=== PATIENT | female | born 1935 ===

== ENCOUNTER 2017-04-11 06:59 | Inpatient (IN) | payer MEDICARE, OTHER ==
[2017-04-11] MEDS ORDERED: Sodium Chloride 0.9% 500 ML IV ONE (07:33)
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
[2017-04-11 07:45] LABS: BASO # 0.1 K/uL (0.0-0.2); BASO % 0.9 % (0.0-2.0); EOS % 0.2 % (0.0-4.0); HEMOGLOBIN 11.8 g/dL (11.0-16.0); LYMPH # 1.5 K/uL (1.0-4.3); MEAN CELL VOLUME 98.3 fL (81.0-99.0); MEAN CORPUSCULAR HEMOGLOBIN 33.3 pg (27.0-31.0); MEAN CORPUSCULAR HGB CONC 33.9 g/dL (33.0-37.0); MEAN PLATELET VOLUME 8.6 fL (7.2-11.7); MONO # 0.7 K/uL (0.0-0.8); MONO % 7.4 % (0.0-10.0); NEUT # 6.9 K/uL (1.8-7.0); NEUT % 75.5 % (50.0-75.0); NRBC % 0.1 % (0.0-2.0); RBC 3.55 Mil/uL (3.80-5.20); WHITE BLOOD COUNT 9.1 K/uL (4.8-10.8)
[2017-04-11 07:47] LABS: VENOUS BLOOD GAS BASE EXCESS 8.8 mmol/L (0.0-2.0); VENOUS BLOOD GAS PCO2 48 mmHg (40-60); VENOUS BLOOD GAS PO2 32 mm/Hg (30-55); VENOUS BLOOD PH 7.46 (7.32-7.43)
[2017-04-11] MEDS ORDERED: Sodium Chloride 0.9% 1,000 ML ONE (07:49)
--- NOTE | 2017-04-11 07:49 | RAD ---
PROCEDURE: CHEST RADIOGRAPH, 1 VIEW HISTORY: SOB COMPARISON: 07/12/2016 FINDINGS: LUNGS: The neck -Face tissues obscure the medial lung apices. The remaining lungs are clear. PLEURA: No pneumothorax or pleural fluid seen. CARDIOVASCULAR: Atherosclerotic vascular calcifications thoracic aorta present OSSEOUS STRUCTURES: Generalized osteopenia and senescent changes VISUALIZED UPPER ABDOMEN: Normal. OTHER FINDINGS: None. IMPRESSION: No active disease.
[2017-04-11 07:51] LABS: INR 1.3; PROTHROMBIN TIME 14.1 SECONDS (9.7-12.2)
[2017-04-11] MEDS ORDERED: Vancomycin 1 GM 1 GM/250 ML BAG IV STA (07:55)
[2017-04-11] MEDS ORDERED: Cefepime 1 GM in Sodium Chloride 0.9% 50 ML IVPB STA (07:56)
[2017-04-11] MEDS ORDERED: Moxifloxacin IV 400mg/250ml NS 400 MG/250 ML BAG IV STA (07:56)
[2017-04-11 07:57] LABS: ALB/GLOB RATIO 0.6 (1.0-2.1); AST/SGOT 26 U/L (14-36); GFR AFRICAN-AMERICAN > 60; GFR NON-AFRICAN AMERICAN > 60
[2017-04-11] MEDS ORDERED: Bacitracin 500 Units/gm Oint Foilpak UD ONE (07:57)
[2017-04-11 07:58] LABS: ALT/SGPT 8 U/L (9-52); BLOOD UREA NITROGEN 30 mg/dL (7-17); CALCIUM 8.8 mg/dl (8.6-10.4)
[2017-04-11 08:06] LABS: B-TYPE NATRIURETIC PEPTIDE 596 pg/mL (0-900); CK-MB 0.56 ng/mL (0.0-3.38)
[2017-04-11 08:10] LABS: SQUAMOUS EPITHIAL 4 /hpf (0-5); URINE AMORPHOUS SEDIMENT RARE /ul (<OCC); URINE BACTERIA FEW (<OCC); URINE BILIRUBIN NEGATIVE (NEGATIVE); URINE BLOOD NEGATIVE (NEGATIVE); URINE CLARITY Hazy (Clear); URINE COLOR Yellow (YELLOW); URINE GLUCOSE (UA) NORMAL (Normal); URINE LEUKOCYTE ESTERASE NEG Leu/uL (Negative); URINE NITRATE NEGATIVE (NEGATIVE); URINE PROTEIN 1+ mg/dL (NEGATIVE)
[2017-04-11] MEDS ORDERED: Sodium Chloride 0.9% 1,000 ML IV ONE ×2 (08:22→10:53)
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
[2017-04-11] MEDS ORDERED: Moxifloxacin IV 400mg/250ml NS 400 MG/250 ML BAG IVPB ONE (10:19)
[2017-04-11] MEDS ORDERED: Acetaminophen 650mg/20.3ml solution UD PO PRN (11:00)
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
[2017-04-11] MEDS ORDERED: Iodixanol 320 MG/ML 100 ML BOTTLE IV ONE (15:35)
--- NOTE | 2017-04-11 17:10 | CT ---
PROCEDURE: CT Abdomen and Pelvis with contrast HISTORY: R/O abscess formation near PEG, peritonitis COMPARISON: None available. TECHNIQUE: Contrast dose: 100 mL Visipaque Radiation dose: Total exam DLP = 341.51 MGy-cm. This CT exam was performed using one or more of the following dose reduction techniques: Automated exposure control, adjustment of the mA and/or kV according to patient size, and/or use of iterative reconstruction technique. FINDINGS: LOWER THORAX: Bilateral lower lobe consolidations may reflect pneumonia and/or atelectasis. No visible pleural effusion or pneumothorax. LIVER: Unremarkable. GALLBLADDER AND BILE DUCTS: Unremarkable. PANCREAS: Unremarkable. SPLEEN: Unremarkable. ADRENALS: Unremarkable. KIDNEYS AND URETERS: No hydronephrosis or obstructing calculus identified. The kidneys enhance symmetrically. VASCULATURE: Dense atherosclerotic calcifications of the aorta and branches. No aortic aneurysm. BOWEL: Stomach is nondistended. Peg tube in place. Lack of oral contrast limits evaluation for bowel pathology. No dilated bowel loops to suggest obstruction. Moderate to severe constipation. APPENDIX: Not visualized. No secondary signs of acute appendicitis. PERITONEUM: No significant free fluid. No definite free air. LYMPH NODES: No bulky adenopathy identified. BLADDER: Decompressed urinary bladder with Ta catheter present. Air within the urinary bladder may be secondary to instrumentation. REPRODUCTIVE: The uterus is present and contains multiple coarse calcifications likely related to degenerating fibroids. BONES: Scoliosis convex to the left. Multilevel degenerative changes. OTHER FINDINGS: None. IMPRESSION: Peg tube. No definite abscess identified. Bilateral lower lobe consolidations may reflect pneumonia and/or atelectasis. Moderate to severe constipation. Air within a decompressed urinary bladder with Ta catheter present; there is likely secondary to recent instrumentation however correlate clinically to exclude cystitis. Evidence of degenerating uterine fibroids. Additional findings as above.
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
[2017-04-11] MEDS: Dextrose 5%/0.45% NS 1,000 ML IV SCH (19:24)
[2017-04-11] MEDS: Albuterol-Ipratrop 3 mg / 0.5 (3 ml) UD INH SCH (20:31)
[2017-04-11] MEDS: Cefepime IV 1 gm in Dextrose 1 GM/50 ML BAG IVPB SCH (20:37)
--- NOTE | 2017-04-11 22:37 | CARD ---
APPROVED REPORT EKG Measurement Heart [id number] <Conclusion> Sinus tachycardia with premature supraventricular complexes Nonspecific ST abnormality Abnormal ECG
[2017-04-12] MEDS: Albuterol-Ipratrop 3 mg / 0.5 (3 ml) UD INH SCH ×6 (01:06→20:17)
[2017-04-12 07:39] LABS: BASO % 0.3 % (0.0-2.0); EOS # 0.1 K/uL (0.0-0.7); EOS % 1.3 % (0.0-4.0); HEMOGLOBIN 10.3 g/dL (11.0-16.0); LYMPH % 9.2 % (20.0-40.0); MEAN CORPUSCULAR HEMOGLOBIN 32.6 pg (27.0-31.0); MEAN PLATELET VOLUME 9.3 fL (7.2-11.7); MONO # 0.5 K/uL (0.0-0.8); MONO % 4.6 % (0.0-10.0); NEUT % 84.6 % (50.0-75.0); NRBC % 0.1 % (0.0-2.0); PLATELET COUNT 169 K/uL (130-400); RBC 3.16 Mil/uL (3.80-5.20); RED CELL DISTRIBUTION WIDTH 13.1 % (11.5-14.5); WHITE BLOOD COUNT 10.6 K/uL (4.8-10.8)
[2017-04-12 08:17] LABS: ALBUMIN 2.3 g/dL (3.5-5.0)
[2017-04-12 08:20] LABS: ALB/GLOB RATIO 0.6 (1.0-2.1); AST/SGOT 22 U/L (14-36); BLOOD UREA NITROGEN 27 mg/dL (7-17); GFR AFRICAN-AMERICAN > 60; GFR NON-AFRICAN AMERICAN > 60
[2017-04-12 08:21] LABS: ALT/SGPT 9 U/L (9-52); CALCIUM 8.2 mg/dl (8.6-10.4); MAGNESIUM 2.3 mg/dL (1.6-2.3)
[2017-04-12] MEDS: Cefepime IV 1 gm in Dextrose 1 GM/50 ML BAG IVPB SCH ×2 (08:29→20:01)
[2017-04-12] MEDS: Dextrose 5%/0.45% NS 1,000 ML IV SCH (08:30)
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
[2017-04-12 10:45] LABS: BANDS 23 % (0-2); BASOPHIL 1 % (0-2); LYMPHOCYTE 9 % (20-40); MONOCYTE 2 % (0-10); NEUTROPHIL 65 % (50-75); PLATELET ESTIMATE NORMAL (NORMAL); TOTAL CELLS COUNTED 100
[2017-04-12] MEDS: Bacitracin 500 Units/gm Oint Foilpak UD TOP SCH (10:56)
[2017-04-12] MEDS: Valproic Acid 250 mg/5 ml UD Cup PEG SCH ×3 (11:00→17:12)
[2017-04-12] MEDS ORDERED: Cefepime IV 1 gm in Dextrose 1 GM/50 ML BAG IVPB SCH (11:00)
--- NOTE | 2017-04-12 11:09 | CP.PCM.PN ---
Subjective - Date & Time of Evaluation Date of Evaluation: 04/12/17 Time of Evaluation: 09:00 - Subjective Subjective: PGY1 on medicine Dr. Miller's service: Patient seen and examined at bedside this morning. Patient does not respond to verbal commands. Patient does not respond to sternal rubbing. Per patient's aid the patient is normally oriented to person only. Objective - Vital Signs/Intake and Output Vital Signs (last 24 hours): Temp Pulse Resp BP Pulse Ox 99.7 F H 91 H 20 104/63 100 04/12/17 07:00 04/12/17 07:00 04/12/17 07:00 04/12/17 07:00 04/12/17 07:00 Intake and Output: 04/12/17 04/12/17 06:59 18:59 Intake Total 900 Output Total 400 Balance 500 - Medications Medications: Current Medications Acetaminophen (Tylenol 650 Mg Supp) 650 mg CO Q6 PRN PRN Reason: Fever >100.4 F Albuterol/Ipratropium (Duoneb 3 Mg/0.5 Mg (3 Ml) Ud) 3 ml INH RQ4 [facility] Last Admin: 04/12/17 08:12 Dose: Not Given Bacitracin (Bacitracin) 1 ea TOP DAILY [facility] Last Admin: 04/12/17 10:56 Dose: 1 ea Famotidine (Pepcid) 20 mg IVP Q12 [facility] Last Admin: 04/12/17 10:56 Dose: 20 mg Heparin Sodium (Porcine) (Heparin) 5,000 units SC Q8 [facility] Last Admin: 04/12/17 06:32 Dose: 5,000 units Azithromycin 500 mg/ Sodium (Chloride) 250 mls @ 250 mls/hr IVPB DAILY [facility] Dextrose/Sodium Chloride (Dextrose 5%/0.45% Ns 1000 Ml) 1,000 mls @ 75 mls/hr IV .[id number] [facility] Last Admin: 04/12/17 08:30 Dose: 75 mls/hr Cefepime HCl (Maxipime Iv 1 Gm Premix) 1 gm in 50 mls @ 100 mls/hr IVPB Q12H [facility] Last Admin: 04/12/17 08:29 Dose: 100 mls/hr Potassium Chloride (Potassium Chloride 20 Meq/100 Ml) 20 meq in 100 mls @ 50 mls/hr IVPB ONCE ONE Stop: 04/12/17 11:59 Last Admin: 04/12/17 10:57 Dose: 50 mls/hr Potassium Chloride (Potassium Chloride 20 Meq/100 Ml) 20 meq in 100 mls @ 50 mls/hr IVPB ONCE ONE Stop: 04/12/17 13:59 Polyethylene Glycol (Miralax) 17 gm PEG DAILY [facility] Valproate Sodium (Depakene Oral Soln) 250 mg PEG BID JAMI - Labs Labs: 04/12/17 07:11 04/12/17 07:11 PT 14.1 SECONDS (9.7-12.2) H 04/11/17 07:31 INR 1.3 04/11/17 07:31 APTT 40 SECONDS (21-34) H 04/11/17 07:31 - Constitutional Appears: No Acute Distress (patient does not respond to sternal rub or verbal commands.) - Respiratory Exam Respiratory Exam: Clear to Ausculation Bilateral, NORMAL BREATHING PATTERN - Cardiovascular Exam Cardiovascular Exam: REGULAR RHYTHM, RRR, +S1, +S2 - GI/Abdominal Exam GI & Abdominal Exam: Soft, Hypoactive Bowel Sounds Additional comments: Patient has a peg tube that was dry, clean and intact. - Extremities Exam Extremities Exam: Pedal Edema - Neurological Exam Neurological Exam: absent: Alert, Awake, Oriented x3 - Skin Skin Exam: Dry, Intact, Normal Color, Warm Assessment and Plan - Assessment and Plan (Free Text) Assessment: Patient is an 82 y/o F with PMhx significant for TBI about 8 years ago, seizures , and rheumatoid arthritis brought in today by ambulance from the senior care when her 02 sat dropped to 88% and she was in respiratory distress. Plan: 1.) Systemic Inflammatory Response Syndrome * f/u blood cultures (04/11/17): Preliminary -- > No growth * urine culture (04/11/17): No growth * pus around peg tube, concern for infection * Peg tube site cultures (04/11/17): Preliminary - Staphylococcus Aureus - Gram Negative Alexandre * GI (Dr. Adame) Consulted --> Help Appreciated - CT A/P with IV contrast (04/11/17): peg tube, no definite abscess identified - Peg Tube feedings restart 04/12/17 * Sputum culture (04/11/17): Few polymorphonuclear WBCs, many epithelial cells, few gram positive cocci, few gram variable rods * X-ray (04/08/17): No active disease * Chest CT (04/12/17): There are bilateral lower lobe atelectatic and or infiltrate changes. Small calcified granuloma right upper lobe unchanged. No effusion or pneumothorac minimal biapical pleural thickening and adjacent parenchymal scarring. There appears to be some very minor centrilobular emphysematous changes in the upper lobes. A few scattered calcified granulomata within the hepatic parenchyma. * Duoneb 3ml q4h * lactic acid * procalcitonin * ID- Dr. Iqbal, consulted --> Help Appreciated. * Tylenol 650 supp q6 PRN if T>100.3 * Cefepime 1g IVq daily * Azithromycin 500 mg IVq daily * hypothermia blanket 2.) Ulcer of the Sacral Region - Stage 1 * Dependent rubor on buttocks bilaterally * Consult wound care * Turn patient q2 3.) Pedal Edema * Trace pedal edema * Patient bed bound * Venous dopplers (04/11/17): Right: No evidence of deep or superficial vein thrombosis of the right lower extremity. Normal valve function noted of the right side. Left: No evidence of deep or superficial vein thrombosis of the left lower extremity. Normal valve function noted of the left side. 4.) History of Seizure Disorder * Neurology Consult (Dr. Jamin Francis) --> Help Appreciated * Valproic Acid level 70.5 * Continue Depakene Oral solution 250 mg PEG BID * Seizure precautions * Head CT (04/12/17): No definitive evidence of acute intracranial hemorrhage or large acute infarct. Moderate to significant chronic white matter ischemic changes. There is extension of these changes into white matter tracts of both basal nuclei. Moderate to significant central volume loss as above. * f/u EEG 5.) Prophylaxis * Patient is DNR * IV Pepcid 20 BID * Heparin 5000 SC q8h * Aspiration precautions * Nephew: Franco Martinez: [phone] * [facility]: [phone]
[2017-04-12] MEDS: POLYETHYLENE GLYCOL 3350 17 GM/Dose PACKET PEG SCH ×3 (11:30→14:36)
[2017-04-12] MEDS: Azithromycin 500 MG in Sodium Chloride 0.9% 250 ML IVPB SCH (12:52)
--- NOTE | 2017-04-12 15:16 | VASCLAB ---
PROCEDURE: Lower Extremity Venous Duplex Exam. HISTORY: bed bound PRIORS: Last exam 06/05/2016,normal. TECHNIQUE: Bilateral common femoral, femoral, popliteal and posterior tibial, peroneal and great saphenous veins were evaluated. Flow was assessed with color Doppler, compressibility, assessment of phasic flow and augmentation response. Report prepared by SONIYA Sexton FINDINGS: RIGHT: 1. Common Femoral Vein: 1.1. Compressibility - Fully compressible: Thrombus - None : Flow - Phasic: Augmentation -Normal: Reflux - None. 2. Femoral Vein: 2.1. Compressibility - Fully compressible: Thrombus - None : Flow - Phasic: Augmentation -Normal: Reflux - None. 3. Popliteal Vein: 3.1. Compressibility - Fully compressible: Thrombus - None : Flow - Phasic: Augmentation -Normal: Reflux - None. 4. Posterior Tibial Vein: 4.1. Compressibility - Fully compressible: Thrombus - None: Flow - Phasic: Augmentation -Normal: Reflux - None. 5. Peroneal Vein: 5.1. Not visualized 6. Great Saphenous Vein: 6.1. Compressibility - Fully compressible: Thrombus - None: Flow - Phasic: Augmentation - Normal: Reflux - None. LEFT: 1. Common Femoral Vein: 1.1. Compressibility - Fully compressible: Thrombus - None: Flow - Phasic: Augmentation -Normal: Reflux - None. 2. Femoral Vein: 2.1. Compressibility - Fully compressible: Thrombus - None: Flow - Phasic: Augmentation -Normal: Reflux - None. 3. Popliteal Vein: 3.1. Compressibility - Fully compressible: Thrombus - None : Flow - Phasic: Augmentation -Normal: Reflux - None. 4. Posterior Tibial Vein: 4.1. Not visualized 5. Peroneal Vein: 5.1. Not visualized 6. Great Saphenous Vein: 6.1. Compressibility - Fully compressible: Thrombus - None: Flow - Phasic: Augmentation - Normal: Reflux - None. OTHER FINDINGS: Right: Unable to visualize the right peroneal veins, due to swelling. Left: Unable to visualize the left posterior tibial and peroneal veins, due to swelling. IMPRESSION: Right: No evidence of deep or superficial vein thrombosis of the right lower extremity. Normal valve function noted of the right side. Left: No evidence of deep or superficial vein thrombosis of the left lower extremity. Normal valve function noted of the left side.
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
--- NOTE | 2017-04-12 16:42 | CT ---
PROCEDURE: CT HEAD WITHOUT CONTRAST. HISTORY: ams COMPARISON: : Does seem made with CT scan of the brain dated 07/12/2016. TECHNIQUE: Axial computed tomography images were obtained through the head/brain without intravenous contrast. Radiation dose: Total exam DLP = 1561.88 mGy-cm. This CT exam was performed using one or more of the following dose reduction techniques: Automated exposure control, adjustment of the mA and/or kV according to patient size, and/or use of iterative reconstruction technique. The examination is limited due to poor patient positioning within the gantry. . FINDINGS: HEMORRHAGE: No acute parenchymal, subarachnoid or extra-axial hemorrhage. BRAIN: Moderate to significant diffuse/ confluent chronic white matter ischemic changes seen extending peripherally into the deep and subcortical white matter both cerebral hemispheres. There also appears to be some extension of these changes into the white matter tracts of both basal nuclei. Moderate to significant central volume loss evidenced by disproportionate enlargement of the ventricles as compared sulci. VENTRICLES: Hydrocephalus the ventricles remain dilated likely due to central volume loss. CALVARIUM: There are no acute calvarial fractures. PARANASAL SINUSES: Left aspect of the frontal sinus remain underpneumatized/hypoplastic MASTOID AIR CELLS: Unremarkable as visualized. No inflammatory changes. OTHER FINDINGS: None. IMPRESSION: Limited examination as described. No definitive evidence of acute intracranial hemorrhage or large acute infarct. Moderate to significant chronic white matter ischemic changes. . There is extension of these changes into white matter tracts of both basal nuclei. Moderate to significant central volume loss as above.
--- NOTE | 2017-04-12 17:05 | CT ---
PROCEDURE: CT scan of the chest dated 04/12/2017 HISTORY: Pneumonia COMPARISON: Comparison made with chest CT dated 01/12/2017. TECHNIQUE: Contiguous axial images were obtained through the chest without intravenous contrast enhancement. Sagittal and coronal reconstructions were performed. Radiation dose (DLP): 396.82 mGy-cm. This CT exam was performed using one or more of the following dose reduction techniques: Automated exposure control, adjustment of the mA and/or kV according to patient size, and/or use of iterative reconstruction technique. FINDINGS: LUNGS: Current study reveals patchy bilateral atelectasis and/or infiltrates in the posterior lower lung ritchie bilaterally. Upper lung ritchie are relatively clear. There appears to be some very minor underlying centrilobular emphysematous changes in the upper lobes Calcified granuloma right upper lobe. Minimal biapical pleural thickening and adjacent parenchymal scarring No effusion. No evidence of pneumothorax. Upper lung ritchie are relatively clear. MEDIASTINUM: Heart size within range of normal. No significant pericardial effusion. Ascending thoracic aorta measures approximately 2.73 cm and descending thoracic aorta measures approximately 2.3 cm. Pulmonary trunk measures approximately 2.8 cm. The central airway is midline and patent. No obvious endoluminal lesions. No significant mediastinal adenopathy however note that evaluation for hilar adenopathy limited due to the lack of circulating intravenous contrast material. PLEURA: No pleural fluid. No pneumothorax. BONES: Minor multilevel degenerative spondylosis of the thoracic spine. Slight increase kyphosis of the upper thoracic region. UPPER ABDOMEN: Few small calcified granulomata scattered throughout the hepatic parenchyma. Additionally, there are small calcific densities within both renal pelves likely vascular in origin however the possibility of nonobstructing concomitant nonobstructing calculi not completely excluded. No evidence of hydronephrosis seen. OTHER FINDINGS: None. IMPRESSION: There are bilateral lower lobe atelectatic and or infiltrate changes. Small calcified granuloma right upper lobe unchanged. No effusion or pneumothorax minimal biapical pleural thickening and adjacent parenchymal scarring . There appears to be some very minor centrilobular emphysematous changes in the upper lobes. A few scattered calcified granulomata within the hepatic parenchyma.
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
[2017-04-13] MEDS: Albuterol-Ipratrop 3 mg / 0.5 (3 ml) UD INH SCH ×7 (00:22→23:33)
[2017-04-13 07:38] LABS: BASO % 0.4 % (0.0-2.0); EOS # 0.2 K/uL (0.0-0.7); EOS % 2.5 % (0.0-4.0); HEMOGLOBIN 9.7 g/dL (11.0-16.0); LYMPH # 0.8 K/uL (1.0-4.3); MEAN CELL VOLUME 99.4 fL (81.0-99.0); MEAN CORPUSCULAR HEMOGLOBIN 32.4 pg (27.0-31.0); MEAN CORPUSCULAR HGB CONC 32.6 g/dL (33.0-37.0); MEAN PLATELET VOLUME 8.8 fL (7.2-11.7); MONO # 0.4 K/uL (0.0-0.8); MONO % 6.6 % (0.0-10.0); NEUT # 4.6 K/uL (1.8-7.0); NEUT % 76.5 % (50.0-75.0); WHITE BLOOD COUNT 6.1 K/uL (4.8-10.8)
[2017-04-13 08:02] LABS: ALBUMIN 2.2 g/dL (3.5-5.0)
[2017-04-13 08:05] LABS: AST/SGOT 24 U/L (14-36); GFR AFRICAN-AMERICAN > 60; GFR NON-AFRICAN AMERICAN > 60
[2017-04-13 08:06] LABS: ALB/GLOB RATIO 0.6 (1.0-2.1); ALT/SGPT 19 U/L (9-52); BLOOD UREA NITROGEN 21 mg/dL (7-17); CALCIUM 7.6 mg/dl (8.6-10.4); MAGNESIUM 2.1 mg/dL (1.6-2.3)
[2017-04-13] MEDS: Cefepime IV 1 gm in Dextrose 1 GM/50 ML BAG IVPB SCH ×2 (09:03→20:00)
[2017-04-13] MEDS: Bacitracin 500 Units/gm Oint Foilpak UD TOP SCH (10:37)
[2017-04-13] MEDS: Azithromycin 500 MG in Sodium Chloride 0.9% 250 ML IVPB SCH (10:37)
[2017-04-13] MEDS: Valproic Acid 250 mg/5 ml UD Cup PEG SCH ×2 (10:37→18:00)
[2017-04-13] MEDS: POLYETHYLENE GLYCOL 3350 17 GM/Dose PACKET PEG SCH (10:38)
[2017-04-13] MEDS: Sodium Chloride 0.9% 1,000 ML IV SCH (20:00)
[2017-04-14] MEDS: Albuterol-Ipratrop 3 mg / 0.5 (3 ml) UD INH SCH ×6 (03:17→23:46)
[2017-04-14 07:51] LABS: BASO % 0.4 % (0.0-2.0); EOS # 0.2 K/uL (0.0-0.7); EOS % 3.9 % (0.0-4.0); HEMOGLOBIN 9.8 g/dL (11.0-16.0); LYMPH % 19.2 % (20.0-40.0); MEAN CELL VOLUME 98.8 fL (81.0-99.0); MEAN CORPUSCULAR HEMOGLOBIN 32.3 pg (27.0-31.0); MEAN CORPUSCULAR HGB CONC 32.7 g/dL (33.0-37.0); MEAN PLATELET VOLUME 8.9 fL (7.2-11.7); MONO # 0.6 K/uL (0.0-0.8); MONO % 11.4 % (0.0-10.0); NEUT # 3.5 K/uL (1.8-7.0); NEUT % 65.1 % (50.0-75.0); RBC 3.03 Mil/uL (3.80-5.20); RED CELL DISTRIBUTION WIDTH 13.1 % (11.5-14.5); WHITE BLOOD COUNT 5.3 K/uL (4.8-10.8)
[2017-04-14 08:39] LABS: ALBUMIN 2.2 g/dL (3.5-5.0)
[2017-04-14] MEDS: Cefepime IV 1 gm in Dextrose 1 GM/50 ML BAG IVPB SCH (08:40)
[2017-04-14 08:41] LABS: GFR AFRICAN-AMERICAN > 60; GFR NON-AFRICAN AMERICAN > 60
[2017-04-14 08:42] LABS: ALB/GLOB RATIO 0.6 (1.0-2.1); ALT/SGPT 17 U/L (9-52); AST/SGOT 29 U/L (14-36); BLOOD UREA NITROGEN 15 mg/dL (7-17)
[2017-04-14 08:43] LABS: CALCIUM 7.9 mg/dl (8.6-10.4); MAGNESIUM 2.3 mg/dL (1.6-2.3)
[2017-04-14] MEDS: Sodium Chloride 0.9% 1,000 ML IV SCH ×3 (08:45→21:28)
[2017-04-14] MEDS: Azithromycin 500 MG in Sodium Chloride 0.9% 250 ML IVPB SCH (10:20)
[2017-04-14] MEDS: POLYETHYLENE GLYCOL 3350 17 GM/Dose PACKET PEG SCH (10:21)
[2017-04-14] MEDS: Valproic Acid 250 mg/5 ml UD Cup PEG SCH ×2 (10:21→17:49)
[2017-04-14] MEDS: Bacitracin 500 Units/gm Oint Foilpak UD TOP SCH (10:21)
[2017-04-14 14:58] LABS: SQUAMOUS EPITHIAL 1 /hpf (0-5); URINE BILIRUBIN NEGATIVE (NEGATIVE); URINE BLOOD NEGATIVE (NEGATIVE); URINE CLARITY Clear (Clear); URINE COLOR Yellow (YELLOW); URINE GLUCOSE (UA) NORMAL (Normal); URINE LEUKOCYTE ESTERASE NEG Leu/uL (Negative); URINE NITRATE NEGATIVE (NEGATIVE); URINE PROTEIN 1+ mg/dL (NEGATIVE)
--- NOTE | 2017-04-14 15:37 | CP.PCM.PN ---
Subjective - Date & Time of Evaluation Date of Evaluation: 04/14/17 Time of Evaluation: 07:00 - Subjective Subjective: remains obtunded rx reordered grave prognosis ROS: 14 POINT REVIEW OF SYMPTOMS IS NEGATIVE PER HPI. Objective - Vital Signs/Intake and Output Vital Signs (last 24 hours): Temp Pulse Resp BP Pulse Ox 98.9 F 99 H 18 129/77 95 04/14/17 08:42 04/14/17 08:42 04/14/17 08:42 04/14/17 08:42 04/14/17 08:42 Intake and Output: 04/14/17 04/14/17 06:59 18:59 Intake Total 1880 Output Total 700 Balance 1180 - Medications Medications: Current Medications Acetaminophen (Tylenol 650 Mg Supp) 650 mg SC Q6 PRN PRN Reason: Fever >100.4 F Last Admin: 04/13/17 06:40 Dose: 650 mg Albuterol/Ipratropium (Duoneb 3 Mg/0.5 Mg (3 Ml) Ud) 3 ml INH RQ4 [facility] Last Admin: 04/14/17 13:00 Dose: Not Given Bacitracin (Bacitracin) 1 ea TOP DAILY [facility] Last Admin: 04/14/17 10:21 Dose: 1 ea Famotidine (Pepcid) 20 mg IVP Q12 [facility] Last Admin: 04/14/17 10:21 Dose: 20 mg Heparin Sodium (Porcine) (Heparin) 5,000 units SC Q8 [facility] Last Admin: 04/14/17 14:27 Dose: 5,000 units Azithromycin 500 mg/ Sodium (Chloride) 250 mls @ 250 mls/hr IVPB DAILY [facility] Last Admin: 04/14/17 10:20 Dose: 250 mls/hr Cefepime HCl (Maxipime Iv 1 Gm Premix) 1 gm in 50 mls @ 100 mls/hr IVPB Q12H [facility] Last Admin: 04/14/17 08:40 Dose: 100 mls/hr Sodium Chloride (Sodium Chloride 0.9%) 1,000 mls @ 100 mls/hr IV .Q10H [facility] Last Admin: 04/14/17 08:45 Dose: 100 mls/hr Polyethylene Glycol (Miralax) 17 gm PEG DAILY [facility] Last Admin: 04/14/17 10:21 Dose: 17 gm Valproate Sodium (Depakene Oral Soln) 250 mg PEG BID [facility] Last Admin: 04/14/17 10:21 Dose: 250 mg - Labs Labs: 04/14/17 07:47 04/14/17 07:47 PT 14.1 SECONDS (9.7-12.2) H 04/11/17 07:31 INR 1.3 04/11/17 07:31 APTT 40 SECONDS (21-34) H 04/11/17 07:31 - Constitutional Appears: Non-toxic, Confused, Cachectic, Chronically Ill - Head Exam Head Exam: ATRAUMATIC, NORMAL INSPECTION, NORMOCEPHALIC - Eye Exam Eye Exam: PERRL. absent: Scleral icterus - ENT Exam ENT Exam: Mucous Membranes Dry - Neck Exam Neck Exam: absent: Lymphadenopathy - Respiratory Exam Respiratory Exam: Decreased Breath Sounds, Rhonchi - Cardiovascular Exam Cardiovascular Exam: REGULAR RHYTHM - GI/Abdominal Exam GI & Abdominal Exam: Distended, Soft - Rectal Exam Rectal Exam: Deferred - Exam Exam: NORMAL INSPECTION - Extremities Exam Extremities Exam: absent: Calf Tenderness, Pedal Edema - Back Exam Back Exam: absent: CVA tenderness (L), CVA tenderness (R) - Neurological Exam Neurological Exam: Altered - Psychiatric Exam Psychiatric exam: Depressed - Skin Skin Exam: Dry Assessment and Plan (1) SIRS (systemic inflammatory response syndrome) Status: Acute (2) Ulcer of sacral region, stage 1 Status: Acute (3) New onset seizure Status: Acute (4) PEG (percutaneous endoscopic gastrostomy) adjustment/replacement/removal Status: Acute (5) Pneumonia Status: Acute - Assessment and Plan (Free Text) Assessment: cultures reviewed iv rx ordered
--- NOTE | 2017-04-14 18:53 | CP.PCM.PN ---
Subjective - Date & Time of Evaluation Date of Evaluation: 04/14/17 Time of Evaluation: 07:10 - Subjective Subjective: Medicine Note (PGY 1) : Dr. Miller's note Patient was seen and examined at bedside. Patient was not responsive to verbal command. Patient was able to open her eyes today. Patient's PEG tube was oozing out yellow liquid, which was cleaned by the nurse right way. Objective - Vital Signs/Intake and Output Vital Signs (last 24 hours): Temp Pulse Resp BP Pulse Ox 99 F 97 H 20 114/68 96 04/14/17 15:43 04/14/17 15:43 04/14/17 15:43 04/14/17 15:43 04/14/17 15:43 Intake and Output: 04/14/17 04/14/17 06:59 18:59 Intake Total 1880 240 Output Total 700 400 Balance 1180 -160 - Medications Medications: Current Medications Acetaminophen (Tylenol 650 Mg Supp) 650 mg [place] Q6 PRN PRN Reason: Fever >100.4 F Last Admin: 04/13/17 06:40 Dose: 650 mg Albuterol/Ipratropium (Duoneb 3 Mg/0.5 Mg (3 Ml) Ud) 3 ml INH RQ4 [facility] Last Admin: 04/14/17 16:30 Dose: 3 ml Bacitracin (Bacitracin) 1 ea TOP DAILY [facility] Last Admin: 04/14/17 10:21 Dose: 1 ea Famotidine (Pepcid) 20 mg IVP Q12 [facility] Last Admin: 04/14/17 10:21 Dose: 20 mg Heparin Sodium (Porcine) (Heparin) 5,000 units SC Q8 [facility] Last Admin: 04/14/17 14:27 Dose: 5,000 units Azithromycin 500 mg/ Sodium (Chloride) 250 mls @ 250 mls/hr IVPB DAILY [facility] Last Admin: 04/14/17 10:20 Dose: 250 mls/hr Sodium Chloride (Sodium Chloride 0.9%) 1,000 mls @ 100 mls/hr IV .Q10H [facility] Last Admin: 04/14/17 16:15 Dose: Not Given Tigecycline 50 mg/ Sodium (Chloride) 100 mls @ 100 mls/hr IVPB Q12H [facility] Polyethylene Glycol (Miralax) 17 gm PEG DAILY [facility] Last Admin: 04/14/17 10:21 Dose: 17 gm Valproate Sodium (Depakene Oral Soln) 250 mg PEG BID [facility] Last Admin: 04/14/17 17:49 Dose: 250 mg - Labs Labs: 04/14/17 07:47 04/14/17 07:47 PT 14.1 SECONDS (9.7-12.2) H 04/11/17 07:31 INR 1.3 04/11/17 07:31 APTT 40 SECONDS (21-34) H 04/11/17 07:31 - Constitutional Appears: No Acute Distress - Head Exam Head Exam: NORMAL INSPECTION, NORMOCEPHALIC - ENT Exam ENT Exam: Mucous Membranes Moist, Normal Exam - Respiratory Exam Respiratory Exam: Rhonchi - Cardiovascular Exam Cardiovascular Exam: REGULAR RHYTHM, +S1, +S2 - GI/Abdominal Exam GI & Abdominal Exam: Soft, Normal Bowel Sounds - Skin Skin Exam: Dry, Normal Color, Warm Assessment and Plan (1) Change in mental status Assessment & Plan: 1. Secondary to suspected pneumonia * Azithromycin 500mg in sodium chloride * Cefepime 1g IVq daily * Duoneb 3ml Q4h 2. Secondary to possible dehydration * NS @ 100mls/hr Status: Acute (2) SIRS (systemic inflammatory response syndrome) Assessment & Plan: Fever Spikes (Tmax : 102.7 F) * Pending repeat blood culture (04/14/17) * Pending UA * blood cultures (04/11/17): Preliminary -- > No growth * urine culture (04/11/17): No growth * pus around peg tube, concern for infection * Peg tube site cultures (04/11/17): Preliminary - Staphylococcus Aureus - Gram Negative Alexandre * As per ID- Dr. Iqbal, could not use merrem for infected peg site===> interacts with divalproic acid (defer to neurology); started tygacil cont same consider CT abd if not done yet to r/o occult abscess * GI (Dr. Adame) Consulted --> Help Appreciated - Liquid leaking out of Peg tube (04/14/17)---> GI re- consulted for PEG tube evaluation - CT A/P with IV contrast (04/11/17): peg tube, no definite abscess identified - Peg Tube feedings restart 04/12/17 * Sputum culture (04/11/17): Few polymorphonuclear WBCs, many epithelial cells, few gram positive cocci, few gram variable rods * X-ray (04/08/17): No active disease * Chest CT (04/12/17): There are bilateral lower lobe atelectatic and or infiltrate changes. Small calcified granuloma right upper lobe unchanged. No effusion or pneumothorac minimal biapical pleural thickening and adjacent parenchymal scarring. There appears to be some very minor centrilobular emphysematous changes in the upper lobes. A few scattered calcified granulomata within the hepatic parenchyma. * ID- Dr. Iqbal, consulted --> Help Appreciated. * Tylenol 650 supp q6 PRN if T>100.3 * Cefepime 1g IVq daily * Azithromycin 500 mg IVq daily Status: Acute (3) Ulcer of sacral region, stage 1 Assessment & Plan: Dependent rubor on buttocks bilaterally * Consult wound care * Turn patient q2 Status: Acute (4) History of seizures Assessment & Plan: Neurology Consult (Dr. Jamin Francis) --> Help Appreciated * Valproic Acid level 70.5 (04/11/17); 26.4 (04/12/17) * Continue Depakene Oral solution 250 mg PEG BID * Seizure precautions * Head CT (04/12/17): No definitive evidence of acute intracranial hemorrhage or large acute infarct. Moderate to significant chronic white matter ischemic changes. There is extension of these changes into white matter tracts of both basal nuclei. Moderate to significant central volume loss as above. * f/u EEG Status: Acute (5) Prophylactic measure Assessment & Plan: * Patient is DNR * IV Pepcid 20 BID * Heparin 5000 SC q8h * Aspiration precautions Status: Acute
[2017-04-15] MEDS: Sodium Chloride 0.9% 1,000 ML IV SCH ×4 (03:00→22:45)
[2017-04-15] MEDS: Albuterol-Ipratrop 3 mg / 0.5 (3 ml) UD INH SCH ×4 (03:29→23:20)
[2017-04-15 08:21] LABS: BASO % 0.6 % (0.0-2.0); EOS # 0.3 K/uL (0.0-0.7); EOS % 4.7 % (0.0-4.0); HEMOGLOBIN 9.7 g/dL (11.0-16.0); LYMPH # 1.1 K/uL (1.0-4.3); LYMPH % 18.2 % (20.0-40.0); MEAN CELL VOLUME 98.6 fL (81.0-99.0); MEAN CORPUSCULAR HEMOGLOBIN 32.2 pg (27.0-31.0); MEAN CORPUSCULAR HGB CONC 32.7 g/dL (33.0-37.0); MEAN PLATELET VOLUME 8.9 fL (7.2-11.7); MONO % 15.8 % (0.0-10.0); NEUT # 3.7 K/uL (1.8-7.0); NEUT % 60.7 % (50.0-75.0); RBC 3.01 Mil/uL (3.80-5.20); WHITE BLOOD COUNT 6.2 K/uL (4.8-10.8)
[2017-04-15 08:29] LABS: ALBUMIN 2.1 g/dL (3.5-5.0)
[2017-04-15 08:32] LABS: ALB/GLOB RATIO 0.6 (1.0-2.1); ALT/SGPT 21 U/L (9-52); AST/SGOT 33 U/L (14-36); BLOOD UREA NITROGEN 20 mg/dL (7-17); GFR AFRICAN-AMERICAN > 60; GFR NON-AFRICAN AMERICAN > 60
[2017-04-15 08:33] LABS: CALCIUM 7.6 mg/dl (8.6-10.4); MAGNESIUM 2.2 mg/dL (1.6-2.3)
[2017-04-15] MEDS: Azithromycin 500 MG in Sodium Chloride 0.9% 250 ML IVPB SCH (09:52)
[2017-04-15] MEDS: Valproic Acid 250 mg/5 ml UD Cup PEG SCH ×3 (09:53→22:03)
[2017-04-15] MEDS: POLYETHYLENE GLYCOL 3350 17 GM/Dose PACKET PEG SCH (09:53)
[2017-04-15] MEDS: Bacitracin 500 Units/gm Oint Foilpak UD TOP SCH (09:53)
--- NOTE | 2017-04-15 12:46 | CP.PCM.PN ---
<Marilu Yo V - Last Filed: 04/15/17 18:28> Objective - Vital Signs/Intake and Output Vital Signs (last 24 hours): Temp Pulse Resp BP Pulse Ox 98.9 F 90 20 113/69 93 L 04/15/17 16:00 04/15/17 16:00 04/15/17 16:00 04/15/17 16:00 04/15/17 17:52 Intake and Output: 04/15/17 04/15/17 06:59 18:59 Intake Total 2260 980 Output Total 800 600 Balance 1460 380 - Medications Medications: Current Medications Acetaminophen (Tylenol 650 Mg Supp) 650 mg [place] Q6 PRN PRN Reason: Fever >100.4 F Last Admin: 04/13/17 06:40 Dose: 650 mg Albuterol/Ipratropium (Duoneb 3 Mg/0.5 Mg (3 Ml) Ud) 3 ml INH RQ4 [facility] Last Admin: 04/15/17 16:13 Dose: 3 ml Aspirin (Aspirin Chewable) 81 mg GT DAILY [facility] Bacitracin (Bacitracin) 1 ea TOP DAILY [facility] Last Admin: 04/15/17 09:53 Dose: 1 ea Famotidine (Pepcid) 20 mg IVP Q12 [facility] Last Admin: 04/15/17 09:53 Dose: 20 mg Heparin Sodium (Porcine) (Heparin) 5,000 units SC Q8 [facility] Last Admin: 04/15/17 13:37 Dose: 5,000 units Sodium Chloride (Sodium Chloride 0.9%) 1,000 mls @ 100 mls/hr IV .Q10H [facility] Last Admin: 04/15/17 09:52 Dose: 100 mls/hr Tigecycline 50 mg/ Sodium (Chloride) 100 mls @ 100 mls/hr IVPB Q12H [facility] Last Admin: 04/15/17 17:00 Dose: 100 mls/hr Polyethylene Glycol (Miralax) 17 gm PEG DAILY [facility] Last Admin: 04/15/17 09:53 Dose: 17 gm Saccharomyces Boulardii (Florastor) 250 mg GT BID [facility] Valproate Sodium (Depakene Oral Soln) 250 mg PEG TID [facility] Last Admin: 04/15/17 15:10 Dose: 250 mg - Labs Labs: 04/15/17 08:11 04/15/17 08:11 PT 14.1 SECONDS (9.7-12.2) H 04/11/17 07:31 INR 1.3 04/11/17 07:31 APTT 40 SECONDS (21-34) H 04/11/17 07:31 Attending/Attestation - Attestation I have personally seen and examined this patient.: Yes I have fully participated in the care of the patient.: Yes I have reviewed all pertinent clinical information, including history, physical exam and plan: Yes Notes (Text): Patient seen, examined, and case discussed with day-time post graduate internship. Family nor intensive care specialist not available at bedside. Patient is responsive to pain, touch, and eyes now flick spontaneously compared to on admission. Discussed with GI, patient does not have liquid from the peg site, tolerating feeds at 60cc/hr, and no residual noted. Patient will need PICC line. Will need to obtain consent for PICC for long-term antibiotics. Reviewed patient's DNR progress note and informed consent for DNR in the chart, which does not preclude antibiotics; but does clearly state no CPR, no medications to restart the heart, and no machines/tubes. Per neurology recommendations, patient started on prophylatic Aspirin 81mg via PEG tube and Depakote 250mg PO tid for seizure prophylaxis. Assessment/Plan (1) SIRS (systemic inflammatory response syndrome) Assessment and Plan: * Criteria: febrile, tachycardia; rule source of infections: suspected pneumonia and UTI * Consult: Dr. Iqbal (ID) on board-->help appreciated * In the ED, received dose of Cefepime 1gram IV X1, Avelox 400mg IV X1, and Vancomycin 1 gram IVX1. * Blood Culture (04/11/17): no growth after 4 days X2 * Blood culture (04/14/17): no growth after 24hours X2 * Urine culture (04/11/17): no growth * Repeat Sputum culture * Procalcitonin: 0.21-->1.42 * Lactic acid: 1.0 * Ct Chest (04/12/17): bilateral lobe atelectac and/or infiltrate changes. Small calcified granuloma right upper lobe unchanged. No effusion or pneumothorax minimal biapical thickening and adjacent parenchymal changes * CT Abdomen/Pelvis (04/11/17): no definite abscess; bilateral lower lobe consolidations may reflect pneumonia and/or atelectasis, moderate to severe constipation, evidence of degenerative fibroids, Air present in urinary Status: Acute (2) Encephalopathy Assessment and Plan: * Consult: Dr Francis (neurology) help appreciated * Recommended for Aspirin 81mg PO daily and Depakote 250mg GT TID for seizure prophylaxis * Pending EEG * Note: patient has traumatic brain injury from 9 [address] ago. * CT head (04/12/17): no evidence of acute intracranial hemorrhage or large acute infarct, moderate to severe significant chronic white matter ischemic changes, moderate to significant central volume loss * Blood Culture (04/11/17): no growth after 4 days X2 * Blood culture (04/14/17): no growth after 24hours X2 * Urine culture (04/11/17): no growth * Repeat Sputum culture * Procalcitonin: 0.21-->1.42 * Lactic acid: 1.0 * Ct Chest (04/12/17): bilateral lobe atelectac and/or infiltrate changes. Small calcified granuloma right upper lobe unchanged. No effusion or pneumothorax minimal biapical thickening and adjacent parenchymal changes * CT Abdomen/Pelvis (04/11/17): no definite abscess; bilateral lower lobe consolidations may reflect pneumonia and/or atelectasis, moderate to severe constipation, evidence of degenerative fibroids, Air present in urinary * NS 100cc/hr (3) Infection at PEG site Assessment and Plan: * Criteria: febrile, tachycardia; rule source of infections; suspected pneumonia and UTI * Consult: Dr. Iqbal (ID) on board-->help appreciated * In the ED, received dose of Cefepime 1gram IV X1, Avelox 400mg IV X1, and Vancomycin 1 gram IVX1. * Blood Culture (04/11/17): no growth after 4 days X2 * Blood culture (04/14/17): no growth after 24 hours X2 * Procalcitonin: 0.21-->1.42 * Lactic acid: 1.0 * Wound culture: MRSA and +ESBL * Bactracin 1 each topical daily * Tigecycline 50mg IV [id number] (active since 04/15/17)--Per infectious disease recommended for 14-21 days of IV Antibiotics * CT Abdomen/Pelvis (04/11/17): no definite abscess; bilateral lower lobe consolidations may reflect pneumonia and/or atelectasis, moderate to severe constipation, evidence of degenerative fibroids, Air present in urinary Status: Acute (4) Ulcer of sacral region, stage 1 Assessment and Plan: * dependent rubor on buttocks bilaterally * consult wound care * turn patient q2 Status: Acute (5) Pedal edema Assessment and Plan: * Trace pedal edema * patient bed bound * 04/12/17 Venous doppler: negative for DVT Status: Acute (6) History of traumatic brain injury Assessment and Plan: * Per discussion with guinea pig breeder, patient is at baseline * CT head (04/12/17): no evidence of acute intracranial hemorrhage or large acute infarct, moderate to severe significant chronic white matter ischemic changes, moderate to significant central volume loss Status: Chronic (7) Dysphagia following cerebrovascular disease Assessment and Plan: * Per discussion with guinea pig breeder, patient is at baseline * Patient has peg feedings normally; resumed peg feedings, no leakage noted today * NPO, Feeding via PEG tube Status: Chronic (8) Prophylactic measure Assessment and Plan: * Patient is DNR/DNI; Documentation for DNR/DNI in the chart from the alf * Pepcid 20mg IV bid for GI ppx * Heparin 5000 units subq 8 hours * PT: not a candidate for PT services * OT: no skill needed * NS 100cc/hr * Will need to discuss with nephew regarding PICC line consent for termite control servicer antibiotics Status: Acute Disposition: Patient will need long-term antibiotics per infectious disease. Will need to obtain consent from power of traffic law attorney for PICC for long-term antibiotics. Will repeat sputum culture. Patient is currently on IV antibiotic to cover for both UTI and pneumonia. <Jessika Gaviria - Last Filed: 04/15/17 19:44> Subjective - Date & Time of Evaluation Date of Evaluation: 04/15/17 Time of Evaluation: 12:46 - Subjective Subjective: Medicine Progress Note- Dr. Yo Service Patient is seen and examined at bedside in no acute distress. Patient is unable to respond to review of systems dues to a brain injury occurring years ago. Patient did open her eyes to painful stimuli today. During examination, PEG tube was clean with no discharge. Objective - Vital Signs/Intake and Output Vital Signs (last 24 hours): Temp Pulse Resp BP Pulse Ox 99.7 F H 100 H 18 127/69 100 04/15/17 07:35 04/15/17 07:35 04/15/17 07:35 04/15/17 07:35 04/15/17 07:35 Intake and Output: 04/15/17 04/15/17 06:59 18:59 Intake Total 2260 Output Total 800 Balance 1460 - Medications Medications: Current Medications Acetaminophen (Tylenol 650 Mg Supp) 650 mg [place] Q6 PRN PRN Reason: Fever >100.4 F Last Admin: 04/13/17 06:40 Dose: 650 mg Albuterol/Ipratropium (Duoneb 3 Mg/0.5 Mg (3 Ml) Ud) 3 ml INH RQ4 [facility] Last Admin: 04/15/17 03:29 Dose: 3 ml Bacitracin (Bacitracin) 1 ea TOP DAILY [facility] Last Admin: 04/15/17 09:53 Dose: 1 ea Famotidine (Pepcid) 20 mg IVP Q12 [facility] Last Admin: 04/15/17 09:53 Dose: 20 mg Heparin Sodium (Porcine) (Heparin) 5,000 units SC Q8 [facility] Last Admin: 04/15/17 06:31 Dose: 5,000 units Azithromycin 500 mg/ Sodium (Chloride) 250 mls @ 250 mls/hr IVPB DAILY [facility] Last Admin: 04/15/17 09:52 Dose: 250 mls/hr Sodium Chloride (Sodium Chloride 0.9%) 1,000 mls @ 100 mls/hr IV .Q10H [facility] Last Admin: 04/15/17 09:52 Dose: 100 mls/hr Tigecycline 50 mg/ Sodium (Chloride) 100 mls @ 100 mls/hr IVPB Q12H [facility] Last Admin: 04/15/17 06:00 Dose: 100 mls/hr Polyethylene Glycol (Miralax) 17 gm PEG DAILY [facility] Last Admin: 04/15/17 09:53 Dose: 17 gm Valproate Sodium (Depakene Oral Soln) 250 mg PEG TID [facility] Last Admin: 04/15/17 09:53 Dose: 250 mg - Labs Labs: 04/15/17 08:11 04/15/17 08:11 PT 14.1 SECONDS (9.7-12.2) H 04/11/17 07:31 INR 1.3 04/11/17 07:31 APTT 40 SECONDS (21-34) H 04/11/17 07:31 - Constitutional Appears: No Acute Distress - Head Exam Head Exam: NORMAL INSPECTION - Eye Exam Eye Exam: Normal appearance. absent: EOMI - ENT Exam ENT Exam: Mucous Membranes Moist - Neck Exam Neck Exam: absent: Full ROM - Respiratory Exam Respiratory Exam: Rhonchi, Wheezes. absent: Clear to Ausculation Bilateral - Cardiovascular Exam Cardiovascular Exam: REGULAR RHYTHM - GI/Abdominal Exam GI & Abdominal Exam: Soft, Normal Bowel Sounds Additional comments: PEG tube in place - Extremities Exam Extremities Exam: Pedal Edema. absent: Full ROM - Neurological Exam Neurological Exam: Altered. absent: Alert, Awake, Oriented x3 - Psychiatric Exam Psychiatric exam: absent: Normal Affect, Normal Mood - Skin Skin Exam: Dry, Intact, Normal Color, Warm Assessment and Plan (1) Change in mental status Assessment & Plan: 1. Secondary to suspected pneumonia * Azithromycin 500mg in sodium chloride * Discontinued on 04/14/17: Cefepime 1g IVq daily * Started Tigecycline 50mg IV Q12H * Duoneb 3ml Q4h 2. 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 Iqbal, could not use merrem for infected peg site===> interacts with divalproic acid (defer to neurology); started Tigecycline; consider CT abd if not done yet to r/o occult abscess * GI (Dr. Adame) Consulted --> Help Appreciated - CT A/P with IV contrast (04/11/17): peg tube, no definite abscess identified - Peg Tube feedings restart 04/12/17 * Sputum culture (04/11/17): Few polymorphonuclear WBCs, many epithelial cells, few gram positive cocci, few gram variable rods * X-ray (04/08/17): No active disease * Chest CT (04/12/17): There are bilateral lower lobe atelectatic and or infiltrate changes. Small calcified granuloma right upper lobe unchanged. No effusion or pneumothorac minimal biapical pleural thickening and adjacent parenchymal scarring. There appears to be some very minor centrilobular emphysematous changes in the upper lobes. A few scattered calcified granulomata within the hepatic parenchyma. * ID- Dr. Iqbal, consulted --> Help Appreciated. * Tylenol 650 supp q6 PRN if T>100.3 * Discontinued on 04/14/17: Cefepime 1g IVq daily * Azithromycin 500 mg IVq daily * Started Tigecycline 50mg IV Q12 Status: Acute (3) History of seizures Assessment & Plan: Neurology Consult (Dr. Jamin Francis), Help Appreciated * Valproic Acid level 70.5 (04/11/17); 26.4 (04/12/17) * Continue Depakene Oral solution 250 mg PEG BID * Seizure precautions * Head CT (04/12/17): No definitive evidence of acute intracranial hemorrhage or large acute infarct. Moderate to significant chronic white matter ischemic changes. There is extension of these changes into white matter tracts of both basal nuclei. Moderate to significant central volume loss as above. * EEG- pending Status: Acute (4) Ulcer of sacral region, stage 1 Assessment & Plan: * Consult wound care * Turn patient q2 Status: Acute (5) Prophylactic measure Assessment & Plan: * Patient is DNR/DNI * IV Pepcid 20 BID * Heparin 5000 SC q8h * Aspiration precautions * Contact isolation precautions Status: Acute
--- NOTE | 2017-04-15 15:33 | CP.PCM.PN ---
Subjective - Date & Time of Evaluation Date of Evaluation: 04/15/17 Time of Evaluation: 09:00 - Subjective Subjective: mdro from peg site gi on board cont rx as per Dr Francis Objective - Vital Signs/Intake and Output Vital Signs (last 24 hours): Temp Pulse Resp BP Pulse Ox 98.8 F 100 H 18 127/69 100 04/15/17 13:45 04/15/17 07:35 04/15/17 07:35 04/15/17 07:35 04/15/17 07:35 Intake and Output: 04/15/17 04/15/17 06:59 18:59 Intake Total 2260 Output Total 800 Balance 1460 - Medications Medications: Current Medications Acetaminophen (Tylenol 650 Mg Supp) 650 mg [place] Q6 PRN PRN Reason: Fever >100.4 F Last Admin: 04/13/17 06:40 Dose: 650 mg Albuterol/Ipratropium (Duoneb 3 Mg/0.5 Mg (3 Ml) Ud) 3 ml INH RQ4 [facility] Last Admin: 04/15/17 03:29 Dose: 3 ml Bacitracin (Bacitracin) 1 ea TOP DAILY [facility] Last Admin: 04/15/17 09:53 Dose: 1 ea Famotidine (Pepcid) 20 mg IVP Q12 [facility] Last Admin: 04/15/17 09:53 Dose: 20 mg Heparin Sodium (Porcine) (Heparin) 5,000 units SC Q8 [facility] Last Admin: 04/15/17 13:37 Dose: 5,000 units Sodium Chloride (Sodium Chloride 0.9%) 1,000 mls @ 100 mls/hr IV .Q10H [facility] Last Admin: 04/15/17 09:52 Dose: 100 mls/hr Tigecycline 50 mg/ Sodium (Chloride) 100 mls @ 100 mls/hr IVPB Q12H [facility] Last Admin: 04/15/17 06:00 Dose: 100 mls/hr Polyethylene Glycol (Miralax) 17 gm PEG DAILY [facility] Last Admin: 04/15/17 09:53 Dose: 17 gm Valproate Sodium (Depakene Oral Soln) 250 mg PEG TID [facility] Last Admin: 04/15/17 09:53 Dose: 250 mg - Labs Labs: 04/15/17 08:11 04/15/17 08:11 PT 14.1 SECONDS (9.7-12.2) H 04/11/17 07:31 INR 1.3 04/11/17 07:31 APTT 40 SECONDS (21-34) H 04/11/17 07:31 - Constitutional Appears: Non-toxic, Chronically Ill - Head Exam Head Exam: NORMOCEPHALIC - Eye Exam Eye Exam: PERRL. absent: Scleral icterus - ENT Exam ENT Exam: Mucous Membranes Dry, Normal External Ear Exam - Neck Exam Neck Exam: absent: Lymphadenopathy - Respiratory Exam Respiratory Exam: Decreased Breath Sounds - Cardiovascular Exam Cardiovascular Exam: REGULAR RHYTHM, +S1, +S2 - GI/Abdominal Exam GI & Abdominal Exam: Distended, Soft - Rectal Exam Rectal Exam: Deferred Assessment and Plan (1) SIRS (systemic inflammatory response syndrome) Status: Acute (2) Ulcer of sacral region, stage 1 Status: Acute (3) New onset seizure Status: Acute (4) PEG (percutaneous endoscopic gastrostomy) adjustment/replacement/removal Status: Acute (5) Pneumonia Status: Acute
[2017-04-15] MEDS: Saccharomyces Boulardi 250 mg Cap GT SCH (18:45)
[2017-04-16] MEDS: Albuterol-Ipratrop 3 mg / 0.5 (3 ml) UD INH SCH ×5 (03:15→20:18)
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
[2017-04-16 08:26] LABS: BASO % 0.5 % (0.0-2.0); EOS # 0.4 K/uL (0.0-0.7); EOS % 7.2 % (0.0-4.0); HEMOGLOBIN 9.3 g/dL (11.0-16.0); LYMPH # 1.6 K/uL (1.0-4.3); LYMPH % 26.6 % (20.0-40.0); MEAN CELL VOLUME 98.5 fL (81.0-99.0); MEAN CORPUSCULAR HEMOGLOBIN 32.9 pg (27.0-31.0); MEAN CORPUSCULAR HGB CONC 33.4 g/dL (33.0-37.0); MEAN PLATELET VOLUME 9.5 fL (7.2-11.7); MONO % 16.5 % (0.0-10.0); NEUT % 49.2 % (50.0-75.0); RBC 2.83 Mil/uL (3.80-5.20); RED CELL DISTRIBUTION WIDTH 13.2 % (11.5-14.5); WHITE BLOOD COUNT 6.1 K/uL (4.8-10.8)
[2017-04-16 08:42] LABS: ALBUMIN 1.8 g/dL (3.5-5.0)
[2017-04-16 08:45] LABS: ALB/GLOB RATIO 0.5 (1.0-2.1); ALT/SGPT 25 U/L (9-52); AST/SGOT 26 U/L (14-36); BLOOD UREA NITROGEN 20 mg/dL (7-17); GFR AFRICAN-AMERICAN > 60; GFR NON-AFRICAN AMERICAN > 60
[2017-04-16 08:46] LABS: CALCIUM 7.4 mg/dl (8.6-10.4); MAGNESIUM 2.1 mg/dL (1.6-2.3)
[2017-04-16] MEDS: Bacitracin 500 Units/gm Oint Foilpak UD TOP SCH (09:35)
[2017-04-16] MEDS: Saccharomyces Boulardi 250 mg Cap GT SCH ×2 (09:35→18:36)
[2017-04-16] MEDS: Valproic Acid 250 mg/5 ml UD Cup PEG SCH ×3 (09:35→18:27)
[2017-04-16] MEDS: POLYETHYLENE GLYCOL 3350 17 GM/Dose PACKET PEG SCH (09:36)
[2017-04-16] MEDS: Sodium Chloride 0.9% 1,000 ML IV SCH ×2 (09:38→18:45)
[2017-04-17] MEDS: Albuterol-Ipratrop 3 mg / 0.5 (3 ml) UD INH SCH ×7 (02:02→23:32)
[2017-04-17 07:50] LABS: BASO % 0.4 % (0.0-2.0); EOS # 0.3 K/uL (0.0-0.7); EOS % 4.1 % (0.0-4.0); HEMOGLOBIN 9.6 g/dL (11.0-16.0); LYMPH # 1.8 K/uL (1.0-4.3); LYMPH % 26.3 % (20.0-40.0); MEAN CELL VOLUME 97.8 fL (81.0-99.0); MEAN CORPUSCULAR HEMOGLOBIN 32.8 pg (27.0-31.0); MEAN CORPUSCULAR HGB CONC 33.6 g/dL (33.0-37.0); MEAN PLATELET VOLUME 9.3 fL (7.2-11.7); MONO # 0.8 K/uL (0.0-0.8); MONO % 12.3 % (0.0-10.0); NEUT # 3.9 K/uL (1.8-7.0); NEUT % 56.9 % (50.0-75.0); RBC 2.93 Mil/uL (3.80-5.20); RED CELL DISTRIBUTION WIDTH 13.1 % (11.5-14.5); WHITE BLOOD COUNT 6.9 K/uL (4.8-10.8)
[2017-04-17 08:14] LABS: ALB/GLOB RATIO 0.5 (1.0-2.1); AST/SGOT 26 U/L (14-36); GFR AFRICAN-AMERICAN > 60; GFR NON-AFRICAN AMERICAN > 60
[2017-04-17 08:15] LABS: ALT/SGPT 18 U/L (9-52); BLOOD UREA NITROGEN 21 mg/dL (7-17); CALCIUM 7.8 mg/dl (8.6-10.4); MAGNESIUM 2.2 mg/dL (1.6-2.3)
[2017-04-17] MEDS: Bacitracin 500 Units/gm Oint Foilpak UD TOP SCH (09:05)
[2017-04-17] MEDS: Valproic Acid 250 mg/5 ml UD Cup PEG SCH ×3 (09:05→18:28)
[2017-04-17] MEDS: Saccharomyces Boulardi 250 mg Cap GT SCH ×2 (09:05→18:28)
[2017-04-17] MEDS: POLYETHYLENE GLYCOL 3350 17 GM/Dose PACKET PEG SCH (09:05)
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
[2017-04-17] MEDS: Sodium Chloride 0.9% 1,000 ML IV SCH (15:10)
--- NOTE | 2017-04-17 16:22 | CP.PCM.PN ---
Subjective - Date & Time of Evaluation Date of Evaluation: 04/17/17 Time of Evaluation: 08:00 - Subjective Subjective: awake alert confused Nad less drainage from GT site Objective - Vital Signs/Intake and Output Vital Signs (last 24 hours): Temp Pulse Resp BP Pulse Ox 98.8 F 96 H 18 102/68 98 04/17/17 07:00 04/17/17 07:00 04/17/17 07:00 04/17/17 07:00 04/17/17 07:00 Intake and Output: 04/17/17 04/17/17 06:59 18:59 Intake Total 2580 1040 Output Total 1250 1100 Balance 1330 -60 - Medications Medications: Current Medications Acetaminophen (Tylenol 650 Mg Supp) 650 mg NE Q6 PRN PRN Reason: Fever >100.4 F Last Admin: 04/13/17 06:40 Dose: 650 mg Albuterol/Ipratropium (Duoneb 3 Mg/0.5 Mg (3 Ml) Ud) 3 ml INH RQ4 [facility] Last Admin: 04/17/17 15:56 Dose: 3 ml Aspirin (Aspirin Chewable) 81 mg GT DAILY [facility] Last Admin: 04/17/17 09:05 Dose: 81 mg Bacitracin (Bacitracin) 1 ea TOP DAILY [facility] Last Admin: 04/17/17 09:05 Dose: 1 ea Famotidine (Pepcid) 20 mg IVP Q12 [facility] Last Admin: 04/17/17 09:05 Dose: 20 mg Heparin Sodium (Porcine) (Heparin) 5,000 units SC Q8 [facility] Last Admin: 04/17/17 13:01 Dose: 5,000 units Sodium Chloride (Sodium Chloride 0.9%) 1,000 mls @ 100 mls/hr IV .Q10H [facility] Last Admin: 04/17/17 15:10 Dose: Not Given Tigecycline 50 mg/ Sodium (Chloride) 100 mls @ 100 mls/hr IVPB Q12H [facility] Last Admin: 04/17/17 05:50 Dose: 100 mls/hr Polyethylene Glycol (Miralax) 17 gm PEG DAILY [facility] Last Admin: 04/17/17 09:05 Dose: 17 gm Saccharomyces Boulardii (Florastor) 250 mg GT BID [facility] Last Admin: 04/17/17 09:05 Dose: 250 mg Valproate Sodium (Depakene Oral Soln) 250 mg PEG TID [facility] Last Admin: 04/17/17 13:01 Dose: 250 mg - Labs Labs: 04/17/17 07:17 04/17/17 07:15 PT 14.1 SECONDS (9.7-12.2) H 04/11/17 07:31 INR 1.3 04/11/17 07:31 APTT 40 SECONDS (21-34) H 04/11/17 07:31 - Constitutional Appears: Non-toxic, Cachectic, Chronically Ill - Head Exam Head Exam: NORMOCEPHALIC - Eye Exam Eye Exam: PERRL. absent: Scleral icterus - ENT Exam ENT Exam: Mucous Membranes Dry, Normal External Ear Exam - Neck Exam Neck Exam: absent: Lymphadenopathy - Respiratory Exam Respiratory Exam: Decreased Breath Sounds, Rhonchi - Cardiovascular Exam Cardiovascular Exam: REGULAR RHYTHM, +S1, +S2 - GI/Abdominal Exam GI & Abdominal Exam: Distended, Soft. absent: Tenderness Assessment and Plan (1) SIRS (systemic inflammatory response syndrome) Status: Acute (2) Ulcer of sacral region, stage 1 Status: Acute (3) New onset seizure Status: Acute (4) PEG (percutaneous endoscopic gastrostomy) adjustment/replacement/removal Status: Acute (5) Pneumonia Status: Acute
--- NOTE | 2017-04-17 18:16 | CP.PCM.PN ---
<Jessika Gaviria - Last Filed: 04/17/17 18:13> Subjective - Date & Time of Evaluation Date of Evaluation: 04/17/17 Time of Evaluation: 18:13 - Subjective Subjective: Medicine Progress Note- Dr. Yo Service Patient was seen and examined at bedside in no acute distress. Patient opens eyes. 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 Objective - Vital Signs/Intake and Output Vital Signs (last 24 hours): Temp Pulse Resp BP Pulse Ox 98.8 F 96 H 18 102/68 98 04/17/17 07:00 04/17/17 07:00 04/17/17 07:00 04/17/17 07:00 04/17/17 07:00 Intake and Output: 04/17/17 04/17/17 06:59 18:59 Intake Total 2580 1040 Output Total 1250 1100 Balance 1330 -60 - Medications Medications: Current Medications Acetaminophen (Tylenol 650 Mg Supp) 650 mg MI Q6 PRN PRN Reason: Fever >100.4 F Last Admin: 04/13/17 06:40 Dose: 650 mg Albuterol/Ipratropium (Duoneb 3 Mg/0.5 Mg (3 Ml) Ud) 3 ml INH RQ4 [facility] Last Admin: 04/17/17 15:56 Dose: 3 ml Aspirin (Aspirin Chewable) 81 mg GT DAILY [facility] Last Admin: 04/17/17 09:05 Dose: 81 mg Bacitracin (Bacitracin) 1 ea TOP DAILY [facility] Last Admin: 04/17/17 09:05 Dose: 1 ea Famotidine (Pepcid) 20 mg IVP Q12 [facility] Last Admin: 04/17/17 09:05 Dose: 20 mg Heparin Sodium (Porcine) (Heparin) 5,000 units SC Q8 [facility] Last Admin: 04/17/17 13:01 Dose: 5,000 units Sodium Chloride (Sodium Chloride 0.9%) 1,000 mls @ 100 mls/hr IV .Q10H [facility] Last Admin: 04/17/17 15:10 Dose: Not Given Tigecycline 50 mg/ Sodium (Chloride) 100 mls @ 100 mls/hr IVPB Q12H [facility] Last Admin: 04/17/17 17:45 Dose: 100 mls/hr Polyethylene Glycol (Miralax) 17 gm PEG DAILY [facility] Last Admin: 04/17/17 09:05 Dose: 17 gm Saccharomyces Boulardii (Florastor) 250 mg GT BID [facility] Last Admin: 04/17/17 09:05 Dose: 250 mg Valproate Sodium (Depakene Oral Soln) 250 mg PEG TID [facility] Last Admin: 04/17/17 13:01 Dose: 250 mg - Labs Labs: 04/17/17 07:17 04/17/17 07:15 PT 14.1 SECONDS (9.7-12.2) H 04/11/17 07:31 INR 1.3 04/11/17 07:31 APTT 40 SECONDS (21-34) H 04/11/17 07:31 - Constitutional Appears: No Acute Distress - Head Exam Head Exam: NORMAL INSPECTION, NORMOCEPHALIC - Eye Exam Eye Exam: Normal appearance - ENT Exam ENT Exam: Mucous Membranes Moist - Neck Exam Neck Exam: absent: Full ROM - Respiratory Exam Respiratory Exam: Rhonchi, Wheezes, NORMAL BREATHING PATTERN. absent: Clear to Ausculation Bilateral - Cardiovascular Exam Cardiovascular Exam: +S1, +S2 - GI/Abdominal Exam GI & Abdominal Exam: Soft, Normal Bowel Sounds - Extremities Exam Extremities Exam: Pedal Edema. absent: Full ROM - Neurological Exam Neurological Exam: Altered, Awake. absent: Alert, Oriented x3 - Psychiatric Exam Psychiatric exam: Flat Affect. 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 Iqbal, could not use merrem for infected peg site===> interacts with divalproic acid (defer to neurology); started Tigecycline; consider CT abd if not done yet to r/o occult abscess * GI (Dr. Adame) Consulted --> Help Appreciated - CT A/P with IV contrast (04/11/17): peg tube, no definite abscess identified - Peg Tube feedings restart 04/12/17 * Sputum culture (04/11/17): Few polymorphonuclear WBCs, many epithelial cells, few gram positive cocci, few gram variable rods * Sputum culture ordered on 04/16/17- pending * Elevate head to 30 degrees and suctioning ordered for excessive sputum production (04/16/17) * X-ray (04/08/17): No active disease * Chest CT (04/12/17): There are bilateral lower lobe atelectatic and or infiltrate changes. Small calcified granuloma right upper lobe unchanged. No effusion or pneumothorac minimal biapical pleural thickening and adjacent parenchymal scarring. There appears to be some very minor centrilobular emphysematous changes in the upper lobes. A few scattered calcified granulomata within the hepatic parenchyma. * ID- Dr. Iqbal, consulted --> Help Appreciated. * Tylenol 650 supp q6 PRN if T>100.3 * Discontinued on 04/14/17: Cefepime 1g IVq daily * Azithromycin 500 mg IVq daily * Started Tigecycline 50mg IV Q12 Status: Acute (2) Change in mental status Assessment & Plan: 1. Secondary to suspected pneumonia * Azithromycin 500mg in sodium chloride * Discontinued on 04/14/17: Cefepime 1g IVq daily * Started Tigecycline 50mg IV Q12H * Duoneb 3ml Q4h 2. Secondary to possible dehydration * NS @ 100mls/hr Status: Acute (3) History of seizures Assessment & Plan: Neurology Consult (Dr. Jamin Francis), Help Appreciated * Valproic Acid level 70.5 (04/11/17); 26.4 (04/12/17) * Continue Depakene Oral solution 250 mg PEG BID * Seizure precautions * Head CT (04/12/17): No definitive evidence of acute intracranial hemorrhage or large acute infarct. Moderate to significant chronic white matter ischemic changes. There is extension of these changes into white matter tracts of both basal nuclei. Moderate to significant central volume loss as above. * EEG- results pending Status: Acute (4) Ulcer of sacral region, stage 1 Assessment & Plan: * Consult wound care * Turn patient q2 Status: Acute (5) Prophylactic measure Assessment & Plan: * Patient is DNR/DNI * IV Pepcid 20 BID * Heparin 5000 SC q8h * Aspiration precautions * Contact isolation precautions Status: Acute <Marilu Yo V - Last Filed: 04/18/17 17:46> Objective - Vital Signs/Intake and Output Vital Signs (last 24 hours): Temp Pulse Resp BP Pulse Ox 97.9 F 84 18 121/71 100 04/18/17 16:00 04/18/17 16:00 04/18/17 16:00 04/18/17 16:00 04/18/17 16:00 Intake and Output: 04/18/17 04/18/17 06:59 18:59 Intake Total 2280 Output Total 1500 Balance 780 - Medications Medications: Current Medications Acetaminophen (Tylenol 650 Mg Supp) 650 mg MI Q6 PRN PRN Reason: Fever >100.4 F Last Admin: 04/13/17 06:40 Dose: 650 mg Albuterol/Ipratropium (Duoneb 3 Mg/0.5 Mg (3 Ml) Ud) 3 ml INH RQ4 [facility] Last Admin: 04/18/17 16:28 Dose: 3 ml Aspirin (Aspirin Chewable) 81 mg GT DAILY [facility] Last Admin: 04/18/17 11:38 Dose: 81 mg Bacitracin (Bacitracin) 1 ea TOP DAILY [facility] Last Admin: 04/18/17 11:39 Dose: 1 ea Famotidine (Pepcid) 20 mg IVP Q12 [facility] Last Admin: 04/18/17 11:39 Dose: 20 mg Heparin Sodium (Porcine) (Heparin) 5,000 units SC Q8 [facility] Last Admin: 04/18/17 14:39 Dose: 5,000 units Sodium Chloride (Sodium Chloride 0.9%) 1,000 mls @ 100 mls/hr IV .Q10H [facility] Last Admin: 04/18/17 05:47 Dose: 100 mls/hr Tigecycline 50 mg/ Sodium (Chloride) 100 mls @ 100 mls/hr IVPB Q12H [facility] Last Admin: 04/18/17 17:05 Dose: 100 mls/hr Polyethylene Glycol (Miralax) 17 gm PEG DAILY [facility] Last Admin: 04/18/17 12:05 Dose: 17 gm Saccharomyces Boulardii (Florastor) 250 mg GT BID [facility] Last Admin: 04/18/17 17:05 Dose: 250 mg Valproate Sodium (Depakene Oral Soln) 250 mg PEG TID [facility] Last Admin: 04/18/17 17:05 Dose: 250 mg - Labs Labs: 04/18/17 07:02 04/18/17 07:02 PT 14.1 SECONDS (9.7-12.2) H 04/11/17 07:31 INR 1.3 04/11/17 07:31 APTT 40 SECONDS (21-34) H 04/11/17 07:31 Attending/Attestation - Attestation I have personally seen and examined this patient.: Yes I have fully participated in the care of the patient.: Yes I have reviewed all pertinent clinical information, including history, physical exam and plan: Yes Notes (Text): This is late computer entry for 04/27/17. Patient seen, examined and case discussed with day-marketing research intern. Patient seen at bedside with care-taker present. Patient awaking eyes spontanously eyes, retracts to painful stimuli, no drainage noted from peg site. Reporting Specialist obtained consent for PICC for the patient who will need IV antibiotics to cover for pneumonia and uti. Discussed with palliative care, reaffirmed code status. Disposition: patient is pending PICC line and likely discharged back to group home to complete IV abx to cover for infection.
[2017-04-18] MEDS: Sodium Chloride 0.9% 1,000 ML IV SCH ×2 (01:00→05:47)
[2017-04-18] MEDS: Albuterol-Ipratrop 3 mg / 0.5 (3 ml) UD INH SCH ×4 (04:23→16:28)
[2017-04-18 07:21] LABS: BASO % 0.9 % (0.0-2.0); EOS # 0.3 K/uL (0.0-0.7); EOS % 5.7 % (0.0-4.0); HEMOGLOBIN 9.5 g/dL (11.0-16.0); LYMPH # 1.6 K/uL (1.0-4.3); LYMPH % 29.6 % (20.0-40.0); MEAN CELL VOLUME 98.7 fL (81.0-99.0); MEAN CORPUSCULAR HEMOGLOBIN 33.1 pg (27.0-31.0); MEAN CORPUSCULAR HGB CONC 33.5 g/dL (33.0-37.0); MONO # 0.8 K/uL (0.0-0.8); MONO % 15.8 % (0.0-10.0); NEUT # 2.5 K/uL (1.8-7.0); RBC 2.86 Mil/uL (3.80-5.20); RED CELL DISTRIBUTION WIDTH 13.3 % (11.5-14.5); WHITE BLOOD COUNT 5.3 K/uL (4.8-10.8)
[2017-04-18 07:36] LABS: ALBUMIN 1.9 g/dL (3.5-5.0)
[2017-04-18 07:38] LABS: GFR AFRICAN-AMERICAN > 60; GFR NON-AFRICAN AMERICAN > 60
[2017-04-18 07:39] LABS: ALB/GLOB RATIO 0.5 (1.0-2.1); ALT/SGPT 13 U/L (9-52); AST/SGOT 21 U/L (14-36); BLOOD UREA NITROGEN 20 mg/dL (7-17); CALCIUM 7.6 mg/dl (8.6-10.4); MAGNESIUM 2.2 mg/dL (1.6-2.3)
[2017-04-18 09:10] VITALS: RESP 18
[2017-04-18] MEDS ORDERED: Midazolam 2 MG/2 ML VIAL ONE (09:50)
--- NOTE | 2017-04-18 10:48 | PCM.SURG1 ---
Surgeon's Initial Post Op Note - Surgeon's Notes Surgeon: Gurinder Christiansen MD Jive Developer: NONE Type of Anesthesia: Local Pre-Operative Diagnosis: Poor venous access Operative Findings: Patent right brachial vein. Post-Operative Diagnosis: Poor venous access Operation Performed: Single lumen picc placement right brachial vein, 37 cm. Tip in SVC. Specimen/Specimens Removed: None Estimated Blood Loss: EBL {In ML}: 2 Blood Products Given: N/A Drains Used: No Drains Post-Op Condition: Fair Date of Surgery/Procedure: 04/18/17 Time of Surgery/Procedure: 10:30
[2017-04-18] MEDS: Valproic Acid 250 mg/5 ml UD Cup PEG SCH ×3 (11:38→17:05)
[2017-04-18] MEDS: Saccharomyces Boulardi 250 mg Cap GT SCH ×2 (11:38→17:05)
[2017-04-18] MEDS: Bacitracin 500 Units/gm Oint Foilpak UD TOP SCH (11:39)
[2017-04-18] MEDS: POLYETHYLENE GLYCOL 3350 17 GM/Dose PACKET PEG SCH (12:05)
[2017-04-18 16:56] VITALS: BP 121/71; TEMP 97.9; O2SAT 100
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
[2017-04-19 00:06] VITALS: PULSE 81
== END 2017-04-18 17:45 | DRG 871 ==
LOC: C.ER 06:59 → C.9E 09:29 → C.6T 18:09
PROVIDERS: ADMIT Hospitalist; ATTEND Hospitalist
PROC: 3E0G76Z Introduction of Nutritional Substance into Upper GI, Via Natural or Artificial Opening (ICD-10-PCS; 2017-04-12)
PROC: 02HV33Z Insertion of Infusion Device into Superior Vena Cava, Percutaneous Approach (ICD-10-PCS; principal; 2017-04-18 11:30)
DX: A41.9 Sepsis, unspecified organism (principal); G92 Toxic encephalopathy; L89.151 Pressure ulcer of sacral region, stage 1; J18.9 Pneumonia, unspecified organism; E88.09 Other disorders of plasma-protein metabolism, not elsewhere classified; E86.0 Dehydration; N39.0 Urinary tract infection, site not specified; R13.10 Dysphagia, unspecified; K94.23 Gastrostomy malfunction; G40.909 Epilepsy, unspecified, not intractable, without status epilepticus; M06.9 Rheumatoid arthritis, unspecified; I10 Essential (primary) hypertension; I49.3 Ventricular premature depolarization; M21.379 Foot drop, unspecified foot; R09.02 Hypoxemia; Z51.5 Encounter for palliative care; Z66 Do not resuscitate; Y83.3 Surgical operation with formation of external stoma as the cause of abnormal reaction of the patient, or of later complication, without mention of misadventure at the time of the procedure; Z78.9 Other specified health status; Z93.1 Gastrostomy status; Z87.820 Personal history of traumatic brain injury

== ENCOUNTER 2017-06-11 13:14 | Inpatient (IN) | payer MEDICARE, OTHER ==
[2017-06-11 13:20] VITALS: BMI 23.3
[2017-06-11] MEDS ORDERED: Sodium Chloride 0.9% 500 ML IV ONE (14:27)
--- NOTE | 2017-06-11 14:47 | RAD ---
HISTORY: Fever COMPARISON: 04/11/2017 and chest without contrast 04/12/2017 FINDINGS: LUNGS: Interval opacification left lung base partially obscured by cardiomegaly. These are interval changes. PLEURA: Interval left pleural effusion. No pneumothorax appear CARDIOVASCULAR: Cardiomegaly. Mild increased central pulmonary venous congestion left greater than right OSSEOUS STRUCTURES: Generalized osteopenia. Thoracic spondylosis VISUALIZED UPPER ABDOMEN: Normal. OTHER FINDINGS: None. IMPRESSION: Interval left basal infiltrate with or without atelectasis. Interval left pleural effusion mild-moderate. Cardiomegaly with interval increased central pulmonary vascular congestion left greater than right
[2017-06-11 15:10] LABS: BASO # 0.1 K/uL (0.0-0.2); BASO % 0.8 % (0.0-2.0); EOS # 0.1 K/uL (0.0-0.7); EOS % 1.6 % (0.0-4.0); HEMATOCRIT 27.5 % (34.0-47.0); LYMPH # 1.7 K/uL (1.0-4.3); LYMPH % 27.6 % (20.0-40.0); MEAN CELL VOLUME 97.7 fL (81.0-99.0); MEAN CORPUSCULAR HEMOGLOBIN 32.6 pg (27.0-31.0); MEAN CORPUSCULAR HGB CONC 33.4 g/dL (33.0-37.0); MEAN PLATELET VOLUME 8.3 fL (7.2-11.7); MONO # 0.8 K/uL (0.0-0.8); MONO % 12.3 % (0.0-10.0); RED CELL DISTRIBUTION WIDTH 14.6 % (11.5-14.5); WHITE BLOOD COUNT 6.2 K/uL (4.8-10.8)
[2017-06-11 15:15] LABS: RBC URINE 29 /hpf (0-3); URINE BACTERIA MOD (<OCC); URINE BILIRUBIN NEGATIVE (NEGATIVE); URINE CALCIUM OXALATE CRYSTALS OCC /hpf (<OCC); URINE COLOR Yellow (YELLOW); URINE GLUCOSE (UA) NORMAL (Normal); URINE KETONE NEGATIVE (NEGATIVE); URINE LEUKOCYTE ESTERASE 3+ Leu/uL (Negative); URINE PROTEIN 2+ mg/dL (NEGATIVE); URINE UROBILINOGEN NORMAL mg/dL (0.2-1.0); WBC URINE 99 /hpf (0-5)
[2017-06-11 15:16] LABS: URINE BLOOD 1+ (NEGATIVE)
[2017-06-11 15:19] LABS: INR 1.3
[2017-06-11 15:19] LABS: VENOUS BLOOD GAS BASE EXCESS 8.3 mmol/L (0.0-2.0); VENOUS BLOOD GAS PCO2 47 mmHg (40-60); VENOUS BLOOD PH 7.46 (7.32-7.43)
[2017-06-11] MEDS ORDERED: Moxifloxacin IV 400mg/250ml NS 250 ML IVPB STA (15:22)
[2017-06-11] MEDS ORDERED: Piperacill/Tazo 3.375gm in Dex 3.375 GM/50 ML BAG IVPB STA (15:22)
[2017-06-11] MEDS ORDERED: Vancomycin 1 gm/NS 200 ml 1 GM/200 ML BAG IVPB STA (15:31)
[2017-06-11 15:32] LABS: CHLORIDE 97 mmol/L (98-107); POTASSIUM 4.6 mmol/L (3.6-5.2); SODIUM 138 mmol/L (132-148)
[2017-06-11 15:34] LABS: ALB/GLOB RATIO 0.6 (1.0-2.1); ALKALINE PHOSPHATASE 65 U/L (38-126); AST/SGOT 32 U/L (14-36); BILIRUBIN,TOTAL 0.5 mg/dL (0.2-1.3); CARBON DIOXIDE 31 mmol/L (22-30); GFR AFRICAN-AMERICAN > 60; TOTAL PROTEIN 7.8 g/dL (6.3-8.3)
[2017-06-11 15:35] LABS: ALT/SGPT 11 U/L (9-52); BLOOD UREA NITROGEN 25 mg/dL (7-17); CALCIUM 8.8 mg/dl (8.6-10.4); GLUCOSE,RANDOM 85 mg/dL (65-105); MAGNESIUM 2.2 mg/dL (1.6-2.3); PHOSPHOROUS 3.9 mg/dL (2.5-4.5)
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
[2017-06-11] MEDS ORDERED: Piperacillin/Tazobact 3.375 gm 100 ML IVPB ONE ×2 (16:02→16:07)
[2017-06-11 17:40] LABS: VENOUS BLOOD GAS BASE EXCESS 6.5 mmol/L (0.0-2.0); VENOUS BLOOD GAS PCO2 53 mmHg (40-60)
[2017-06-11] MEDS ORDERED: Piperacillin/Tazobact 3.375 GM in Sodium Chloride 100 ML IVPB SCH (19:30)
[2017-06-11] MEDS: Albuterol-Ipratrop 3 mg / 0.5 (3 ml) UD INH SCH (20:46)
[2017-06-11] MEDS: Dextrose 5%/0.45% NS 1,000 ML IV SCH (20:48)
[2017-06-11] MEDS: Piperacill/Tazo 3.375gm in Dex 3.375 GM/50 ML BAG IVPB SCH (22:06)
--- NOTE | 2017-06-11 22:38 | CT ---
EXAM: CT Head Without Intravenous Contrast EXAM DATE/TIME: 06/11/2017 7:10 PM CLINICAL HISTORY: 82 years old, female; Signs and symptoms; Fever; Additional info: Fever, patient not verbal TECHNIQUE: Axial computed tomography images of the head/brain without intravenous contrast. All CT scans at this facility use one or more dose reduction techniques, viz.: automated exposure control; ma/kV adjustment per patient size (including targeted exams where dose is matched to indication; i.e. head); or iterative reconstruction technique. COMPARISON: No relevant prior studies available. FINDINGS: LIMITATIONS: Patient positioning. The patient's head is tilted forward in the CT gantry. The patient was reportedly nonverbal. Mild to moderate streak/motion artifact. BRAIN: Areas of hypodensity seen in the white matter bilaterally, nonspecific in appearance, but most likely representing chronic small vessel ischemic changes, in a patient of this age. Diffuse, marked, age-related cortical atrophy and ventriculomegaly. No significant acute abnormality identified. No acute hemorrhage seen within the brain. No acute extra-axial fluid collections visualized. No evidence of significant mass effect within the brain. VENTRICLES: See above. BONES/JOINTS: No acute fractures or other acute bony abnormality noted. SOFT TISSUES: No acute abnormality of the visualized soft tissues is seen. SINUSES: Visualized paranasal sinuses appear clear. MASTOID AIR CELLS: Mastoid air cells appear clear. IMPRESSION: - Somewhat limited exam. No definite acute findings seen within the brain. - See above for remaining findings.
--- NOTE | 2017-06-11 22:56 | CT ---
EXAM: CT Chest Without Intravenous Contrast CT Abdomen and Pelvis Without Intravenous Contrast EXAM DATE/TIME: 06/11/2017 7:10 PM CLINICAL HISTORY: 82 years old, female; Signs and symptoms; Fever; Additional info: Fever, pleural effusion, patient not verbal TECHNIQUE: Axial computed tomography images of the chest, abdomen and pelvis without intravenous contrast. All CT scans at this facility use one or more dose reduction techniques, viz.: automated exposure control; ma/kV adjustment per patient size (including targeted exams where dose is matched to indication; i.e. head); or iterative reconstruction technique. All CT scans at this facility use one or more dose reduction techniques, viz.: automated exposure control; ma/kV adjustment per patient size (including targeted exams where dose is matched to indication; i.e. head); or iterative reconstruction technique. Coronal and sagittal reformatted images were created and reviewed. COMPARISON: No relevant prior studies available. FINDINGS: LIMITATIONS: Mild to moderate streak/motion artifact. Streak artifact from the patient's arms. CHEST: LUNGS: Findings suspicious for bilateral pneumonia. There is extensive, dense consolidation containing air bronchograms in the left lower lobe. There are scattered, patchy areas of consolidation in the lungs bilaterally, greatest in the right lower lobe. There are tree in bud opacities in the lungs bilaterally, greatest in the left upper lobe, where diffuse tree in bud opacities are seen. Scarring in the lung apices bilaterally. Mild emphysematous changes. No evidence of diffuse pulmonary vascular congestion. Patent large airways. PLEURAL SPACE: Very small left pleural effusion. No pneumothorax is seen. HEART: Coronary artery calcification.No evidence of significant pericardial effusion. ABDOMEN: LIVER: No acute abnormality of the liver identified. GALLBLADDER AND BILE DUCTS: No CT evidence of acute cholecystitis. No evidence of significant biliary ductal dilatation. PANCREAS: No CT evidence of acute pancreatitis. SPLEEN: No acute abnormality of the spleen identified. ADRENALS: No acute abnormality of the adrenal glands. KIDNEYS AND URETERS: No acute abnormality of the kidneys seen. STOMACH AND BOWEL: Percutaneous gastrostomy is in place. Rectum is stool-filled and is mildly dilated. Its wall is mildly thickened. There is mild infiltration of the perirectal fat. Findings are suspicious for mild stercoral proctitis. Extensive colonic diverticulosis, without evidence of acute diverticulitis. Otherwise, no significant abnormality of the bowel is identified. No evidence of bowel obstruction. APPENDIX: Appendix is seen, and is within normal limits in appearance. PELVIS: BLADDER: Catheter noted within the bladder lumen. REPRODUCTIVE: Multiple small, calcified parauterine and intrauterine masses, most compatible with calcified fibroids. No evidence of large adnexal masses. CHEST, ABDOMEN and PELVIS: INTRAPERITONEAL SPACE: No evidence of free intraperitoneal air or fluid. BONES/JOINTS: Bony structures appear demineralized. SOFT TISSUES: No evidence of significant acute soft tissue abnormality. VASCULATURE: Exam is nondiagnostic for aortic dissection, secondary to unenhanced technique. No evidence of abdominal aortic aneurysm. LYMPH NODES: No evidence of diffuse lymphadenopathy. IMPRESSION: - Findings highly suspicious for bilateral pneumonia, greatest in the left lower lobe, which is diffusely, densely consolidated. Follow up is recommended to document resolution, as this has a micronodular component. - Findings suspicious for mild stercoral proctitis. - Very small left pleural effusion. - Otherwise, no evidence of significant acute process on this unenhanced exam. - See above for remaining findings.
[2017-06-12] MEDS: Albuterol-Ipratrop 3 mg / 0.5 (3 ml) UD INH SCH ×4 (01:31→20:09)
[2017-06-12] MEDS: Piperacill/Tazo 3.375gm in Dex 3.375 GM/50 ML BAG IVPB SCH ×4 (03:23→21:22)
[2017-06-12] MEDS: Vancomycin 1 gm/NS 200 ml 1 GM/200 ML BAG IVPB SCH ×2 (04:18→17:58)
[2017-06-12 08:28] LABS: BASO % 0.3 % (0.0-2.0); EOS # 0.1 K/uL (0.0-0.7); EOS % 2.5 % (0.0-4.0); HEMATOCRIT 26.4 % (34.0-47.0); LYMPH # 1.7 K/uL (1.0-4.3); LYMPH % 34.4 % (20.0-40.0); MEAN CELL VOLUME 98.3 fL (81.0-99.0); MEAN CORPUSCULAR HEMOGLOBIN 32.5 pg (27.0-31.0); MEAN CORPUSCULAR HGB CONC 33.1 g/dL (33.0-37.0); MEAN PLATELET VOLUME 8.4 fL (7.2-11.7); MONO # 0.5 K/uL (0.0-0.8); MONO % 10.8 % (0.0-10.0); NRBC % 0.1 % (0.0-2.0); RED CELL DISTRIBUTION WIDTH 14.4 % (11.5-14.5)
[2017-06-12 09:06] LABS: CHLORIDE 103 mmol/L (98-107); POTASSIUM 3.8 mmol/L (3.6-5.2); SODIUM 141 mmol/L (132-148)
[2017-06-12 09:08] LABS: GFR AFRICAN-AMERICAN > 60
[2017-06-12 09:09] LABS: ALKALINE PHOSPHATASE 63 U/L (38-126); ALT/SGPT 15 U/L (9-52); AST/SGOT 20 U/L (14-36); BILIRUBIN,TOTAL 0.2 mg/dL (0.2-1.3); BLOOD UREA NITROGEN 17 mg/dL (7-17); CARBON DIOXIDE 29 mmol/L (22-30); GLUCOSE,RANDOM 91 mg/dL (65-105); PHOSPHOROUS 4.2 mg/dL (2.5-4.5); TOTAL PROTEIN 6.8 g/dL (6.3-8.3)
[2017-06-12 09:10] LABS: CALCIUM 9.1 mg/dl (8.6-10.4); MAGNESIUM 2.1 mg/dL (1.6-2.3)
[2017-06-12 09:13] LABS: ALB/GLOB RATIO 0.5 (1.0-2.1)
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
--- NOTE | 2017-06-12 09:37 | CP.PCM.PN ---
<Anabela Damico - Last Filed: 06/12/17 19:26> Subjective - Date & Time of Evaluation Date of Evaluation: 06/12/17 Time of Evaluation: 09:37 - Subjective Subjective: Patient seen and examined at bedside. Patient is nonverbal, nonresponsive, and bed bound at baseline. Patient opens and follows movement, however she does not respond to her name or commands. ROS cannot be obtained secondary to pt's inabilty to answer questions. Objective - Vital Signs/Intake and Output Vital Signs (last 24 hours): Temp Pulse Resp BP Pulse Ox 97.6 F 86 18 120/60 100 06/12/17 07:15 06/12/17 07:15 06/12/17 07:15 06/12/17 07:15 06/12/17 07:15 Intake and Output: 06/12/17 06/12/17 06:59 18:59 Output Total 850 Balance -850 - Medications Medications: Current Medications Acetaminophen (Tylenol 650 Mg Supp) 650 mg [place] Q6 PRN PRN Reason: Fever >100.4 F Albuterol/Ipratropium (Duoneb 3 Mg/0.5 Mg (3 Ml) Ud) 3 ml INH RQ6 [facility] Last Admin: 06/12/17 08:18 Dose: 3 ml Aspirin (Aspirin Supp) 300 mg [place] DAILY [facility] Heparin Sodium (Porcine) (Heparin) 5,000 units SC Q8 [facility] Last Admin: 06/12/17 05:32 Dose: 5,000 units Dextrose/Sodium Chloride (Dextrose 5%/0.45% Ns 1000 Ml) 1,000 mls @ 70 mls/hr IV .[id number] [facility] Last Admin: 06/11/17 20:48 Dose: 70 mls/hr Vancomycin/Sodium Chloride (Vancocin) 1 gm in 200 mls @ 133 mls/hr IVPB Q12H [facility] Stop: 06/17/17 05:01 Last Admin: 06/12/17 04:18 Dose: 133 mls/hr Piperacillin Sod/Tazobactam Sod (Zosyn 3.375 Gm Iv Premix) 3.375 gm in 50 mls @ 100 mls/hr IVPB Q6H [facility] Last Admin: 06/12/17 03:23 Dose: 100 mls/hr Pneumococcal Polyvalent Vaccine (Pneumovax 23 Vaccine) 0.5 ml IM .ONCE ONE Stop: 06/14/17 10:01 - Labs Labs: 06/12/17 08:11 06/12/17 08:11 PT 14.4 SECONDS (9.7-12.2) H 06/11/17 15:04 INR 1.3 06/11/17 15:04 APTT 50 SECONDS (21-34) H D 06/12/17 08:11 - Constitutional Appears: Non-toxic, No Acute Distress - Head Exam Head Exam: NORMAL INSPECTION - ENT Exam ENT Exam: Mucous Membranes Moist Additional comments: Pt drooling - Respiratory Exam Respiratory Exam: Rales (b/l), Rhonchi (b/l), NORMAL BREATHING PATTERN. absent : Accessory Muscle Use, Respiratory Distress - Cardiovascular Exam Cardiovascular Exam: REGULAR RHYTHM, +S1, +S2. absent: Bradycardia, Tachycardia - GI/Abdominal Exam GI & Abdominal Exam: Soft, Normal Bowel Sounds. absent: Distended Additional comments: G tube in place without erythema or swelling. Mild purulent drainage near insertion site. - Exam Additional comments: Ta in place. - Extremities Exam Extremities Exam: Pedal Edema (mild ) - Neurological Exam Neurological Exam: Alert, Awake Additional comments: Cannot respond - Skin Skin Exam: Dry, Intact, Warm Assessment and Plan - Assessment and Plan (Free Text) Assessment: Fever * Consult: Dr. Iqbal (ID-->help appreciated reason: possible aspiration pneumonia, catheter associated UTI/prior hx of ESBL+UTI last admission * Procalcitonin 0.08 * lactic acid normal and repeat lactic acid normal * Patient does not fulfill sepsis criteria and nor is code sepsis given normal lactic acids. * C/w Zosyn 3.375 IVPB Q6H and Vancomycin 1Gm IVPB Q12H therapy unless ID recommends different regimen * Vanc trough: 16.8 (06/12) * CT Chest/Abdomen/Pelvis: Findings highly suspicious for bilateral pneumonia, greatest in the left lower lobe, which is diffusely, densely consolidated. Follow up is recommended to document resolution, as this has a micronodular component. Findings suspicious for mild stercoral proctitis. Very small left pleural effusion. * f/u mycoplasma Igm, strep pneumo, legionella urine * f/u BC * F/U UC: preliminary read of gram negative carito and gram positive cocci * F/U sputum culture * F/U PEG culture Ulcer of sacral region, stage 1 * Prior hx of sacral wound--> area appears intact * dependent rubor on buttocks bilaterally * consult wound care if needed * turn patient q2 Pleural Effusion * Duoneb RQ6 [facility] * Consider deep suctioning if patient cannot clear secretions Gastrostomy tube dysfunction * GI Consult as discussed below * Mild pus at insertion of tube History of seizures and TBI * Per discussion with plating machine operator, patient is more lethargic than her usual state upon arrival * Head CT: no acute findings * f/u Valproic Acid level * Needs order for Depakene Oral solution 250 mg PEG BID since G tube cleared by GI * Seizure precautions Dysphagia following cerebrovascular disease * Per discussion with plating machine operator, patient is at baseline * Patient has peg feedings normally; GI assessed peg tube and said it was safe for use so feeds were started * Aspiration precautions Lower Extremity Edema * bed bound * LE duplex: no evidence of venous thrombosis b/l or valve dysfunction Prophylaxis * Patient is DNR/DNI * IV Pepcid 20 BID * Heparin 5000 SC q8h * ASA 81mg [place] qD * D5-1/2NS 70cc/hr * Turn q2h * Aspiration precautions * Contact isolation precautions given prior hx of ESBL+ UTI * Seizure precautions * PT/OT eval * Nephew: Franco Martinez: [phone] * [facility]: [phone] Palliative consult * Impression * This is chronically ill patient with acute changes in her condition due to UTI and Pneumonia * Patient is non verbal and unable to make her needs known * Patient is in need for max assistance with ADLs * High risk for pressure sore due to prolonged bed rest * High risk for aspiration * Skin around PEG at risk for emaciation due to constantly draining side * Suggestion * Assist with ADLs * Aspiration precautions * Cleanse PEG area with NaCl0.9% Q shift and PRN and cover with 4X4, keep area dry * Promote skin integrity * Oral hygiene * Patient may need Central Line placement for IV antibiotics <Marilu Yo V - Last Filed: 06/13/17 06:17> Objective - Vital Signs/Intake and Output Vital Signs (last 24 hours): Temp Pulse Resp BP Pulse Ox 99.2 F 83 20 00/00 L 99 06/12/17 15:00 06/12/17 15:00 06/12/17 15:00 06/13/17 00:15 06/12/17 15:00 Intake and Output: 06/12/17 06/13/17 18:59 06:59 Intake Total 560 390 Output Total 200 Balance 360 390 - Labs Labs: 06/12/17 08:11 06/12/17 08:11 PT 14.4 SECONDS (9.7-12.2) H 06/11/17 15:04 INR 1.3 06/11/17 15:04 APTT 50 SECONDS (21-34) H D 06/12/17 08:11 Attending/Attestation - Attestation I have personally seen and examined this patient.: Yes I have fully participated in the care of the patient.: Yes I have reviewed all pertinent clinical information, including history, physical exam and plan: Yes Notes (Text): This is late computer entry for 06/12/17. Patient seen, examined, and case discussed with day-time resident during rounds this afternoon. Patient is nonverbal, eyes open and close, does not talk. Patient has mild saliva outside mouth. Patient seen by GI earlier in the day, may use peg tube. Patient's feedings restarted. Patient is on IV antibiotics for pneumonia and possible UTI, placed on contact isolation given prior history of ESBL. Discussed with patient's day-time nurse regarding suctioning of patient's secretions and changing given she had a bowel movement during time of exam. Patient completed CT Head/Chest/Abdomen/Pelvis and reviewed with the resident.
[2017-06-12] MEDS: Dextrose 5%/0.45% NS 1,000 ML IV SCH ×2 (10:30→13:57)
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
[2017-06-12 16:02] VITALS: PULSE 83; RESP 20; TEMP 99.2; O2SAT 99
[2017-06-12] MEDS ORDERED: Petrolatum Oint Foilpak (5 gm) TOP PRN (17:17)
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
--- NOTE | 2017-06-12 20:26 | CARD ---
APPROVED REPORT EKG Measurement Heart [id number] <Conclusion> Normal sinus rhythm Normal ECG
--- NOTE | 2017-06-13 00:30 | CP.PCM.PRO ---
Pronouncement of Note - Clinical Findings Physical Exam: No Response Verbal/Painful Stimuli, Absent Peripheral Pulses{ Carotid & Femoral}, Absent Heart & Breath Sounds, No Pupillary Light Reflex, Pupils Fixed & Dilated, Absence of Vital Signs - Pronouncement Time Time of Pronouncement of : 00:39 - Notifications Pronouncement Notifications: Family Notified, Atending Notified [employer] Notified: No - Autopsy Autopsy Requested: No - [place] [id number]
[2017-06-13] MEDS: Albuterol-Ipratrop 3 mg / 0.5 (3 ml) UD INH SCH (01:32)
[2017-06-13 02:07] VITALS: BP 00/00
--- NOTE | 2017-06-13 17:23 | CP.PCM.DIS ---
<Anabela Damico - Last Filed: 06/13/17 17:40> Provider - Provider Date of Admission: 06/11/17 15:51 Attending physician: Damian Castaneda MD Consults: Dr. Farida Lorenzana Time Spent in preparation of Discharge (in minutes): 35 Diagnosis - Discharge Diagnosis (1) Change in mental status Status: Acute Comment: Likely due to UTI. Patient was treated with change of [place] as well as Zosyn 3.375 IVPB Q6H and Vancomycin 1Gm IVPB Q12H (2) Fever Status: Acute Comment: Likely due to UTI. Patient was treated with change of [place] as well as Zosyn 3.375 IVPB Q6H and Vancomycin 1Gm IVPB Q12H (3) Gastrostomy tube dysfunction Status: Acute Comment: Evaluated by GI and determined to be functioning well. (4) UTI (urinary tract infection) Status: Acute Comment: Patient was treated with change of [place] as well as Zosyn 3.375 IVPB Q6H and Vancomycin 1Gm IVPB Q12H Hospital Course - Lab Results Lab Results: Micro Results 06/11/17 23:12 Peg Site Gram Stain - Final 06/11/17 23:12 Peg Site Wound Culture - Preliminary Gram Negative Alexandre 06/11/17 16:00 Blood Blood Culture - Preliminary NO GROWTH AFTER 24 HOURS Most Recent Lab Values WBC 5.0 K/uL (4.8-10.8) 06/12/17 08:11 RBC 2.68 Mil/uL (3.80-5.20) L 06/12/17 08:11 Hgb 8.7 g/dL (11.0-16.0) L 06/12/17 08:11 Hct 26.4 % (34.0-47.0) L 06/12/17 08:11 MCV 98.3 fL (81.0-99.0) 06/12/17 08:11 MCH 32.5 pg (27.0-31.0) H 06/12/17 08:11 MCHC 33.1 g/dL (33.0-37.0) 06/12/17 08:11 RDW 14.4 % (11.5-14.5) 06/12/17 08:11 Plt Count 244 K/uL (130-400) 06/12/17 08:11 MPV 8.4 fL (7.2-11.7) 06/12/17 08:11 Neut % (Auto) 52.0 % (50.0-75.0) 06/12/17 08:11 Lymph % (Auto) 34.4 % (20.0-40.0) 06/12/17 08:11 [place]clean % (Auto) 10.8 % (0.0-10.0) H 06/12/17 08:11 Eos % (Auto) 2.5 % (0.0-4.0) 06/12/17 08:11 Baso % (Auto) 0.3 % (0.0-2.0) 06/12/17 08:11 Neut # 2.6 K/uL (1.8-7.0) 06/12/17 08:11 Lymph # 1.7 K/uL (1.0-4.3) 06/12/17 08:11 Mclean # 0.5 K/uL (0.0-0.8) 06/12/17 08:11 Eos # 0.1 K/uL (0.0-0.7) 06/12/17 08:11 Baso # 0.0 K/uL (0.0-0.2) 06/12/17 08:11 PT 14.4 SECONDS (9.7-12.2) H 06/11/17 15:04 INR 1.3 06/11/17 15:04 APTT 50 SECONDS (21-34) H D 06/12/17 08:11 pO2 45 mm/Hg (30-55) 06/11/17 17:35 VBG pH 7.40 (7.32-7.43) 06/11/17 17:35 VBG pCO2 53 mmHg (40-60) 06/11/17 17:35 VBG HCO3 29.5 mmol/L 06/11/17 17:35 VBG Total CO2 34.4 mmol/L (22-28) H 06/11/17 17:35 VBG O2 Sat (Calc) 83.0 % (40-65) H 06/11/17 17:35 VBG Base Excess 6.5 mmol/L (0.0-2.0) H 06/11/17 17:35 VBG Potassium 3.8 mmol/L (3.6-5.2) 06/11/17 17:35 Sodium 141.0 mmol/l (132-148) 06/11/17 17:35 Chloride 106.0 mmol/L (98-107) 06/11/17 17:35 Glucose 84 mg/dl (65-105) 06/11/17 17:35 Lactate 0.8 mmol/L (0.7-2.1) 06/11/17 17:35 FiO2 21.0 % 06/11/17 17:35 Sodium 141 mmol/L (132-148) 06/12/17 08:11 Potassium 3.8 mmol/L (3.6-5.2) 06/12/17 08:11 Chloride 103 mmol/L (98-107) 06/12/17 08:11 Carbon Dioxide 29 mmol/L (22-30) 06/12/17 08:11 Anion Gap 13 (10-20) 06/12/17 08:11 BUN 17 mg/dL (7-17) 06/12/17 08:11 Creatinine 0.5 MG/DL (0.7-1.2) L 06/12/17 08:11 Est GFR ( Amer) > 60 06/12/17 08:11 Est GFR (Non-Af Amer) > 60 06/12/17 08:11 POC Glucose (mg/dL) 97 mg/dL (65-110) 06/12/17 21:05 Random Glucose 91 mg/dL (65-105) 06/12/17 08:11 Calcium 9.1 mg/dl (8.6-10.4) 06/12/17 08:11 Phosphorus 4.2 mg/dL (2.5-4.5) 06/12/17 08:11 Magnesium 2.1 mg/dL (1.6-2.3) 06/12/17 08:11 Total Bilirubin 0.2 mg/dL (0.2-1.3) 06/12/17 08:11 AST 20 U/L (14-36) 06/12/17 08:11 ALT 15 U/L (9-52) 06/12/17 08:11 Alkaline Phosphatase 63 U/L (38-126) 06/12/17 08:11 Total Protein 6.8 g/dL (6.3-8.3) 06/12/17 08:11 Albumin 2.4 g/dL (3.5-5.0) L 06/12/17 08:11 Globulin 4.4 gm/dL (2.2-3.9) H 06/12/17 08:11 Albumin/Globulin Ratio 0.5 (1.0-2.1) L 06/12/17 08:11 Procalcitonin 0.08 NG/ML (0.19-0.49) L 06/12/17 08:11 Venous Blood Potassium 3.8 mmol/L (3.6-5.2) 06/11/17 17:35 Urine Color Yellow (YELLOW) 06/11/17 15:04 Urine Clarity Hazy (Clear) 06/11/17 15:04 Urine pH 8.0 (5.0-8.0) 06/11/17 15:04 Ur Specific [place] 1.019 (1.003-1.030) 06/11/17 15:04 Urine Protein 2+ mg/dL (NEGATIVE) H 06/11/17 15:04 Urine Glucose (UA) Normal mg/dL (Normal) 06/11/17 15:04 Urine Ketones Negative mg/dL (NEGATIVE) 06/11/17 15:04 Urine Blood 1+ (NEGATIVE) H 06/11/17 15:04 Urine Nitrate Negative (NEGATIVE) 06/11/17 15:04 Urine Bilirubin Negative (NEGATIVE) 06/11/17 15:04 Urine Urobilinogen Normal mg/dL (0.2-1.0) 06/11/17 15:04 Ur Leukocyte Esterase 3+ Derrick/uL (Negative) H 06/11/17 15:04 Urine WBC (Auto) 99 /hpf (0-5) H 06/11/17 15:04 Urine RBC (Auto) 29 /hpf (0-3) H 06/11/17 15:04 Ur Squamous Epith Cells 1 /hpf (0-5) 06/11/17 15:04 Calcium Oxalate Crystal Occ /hpf (<OCC) H 06/11/17 15:04 Urine Bacteria Mod (<OCC) H 06/11/17 15:04 Vancomycin Trough 16.8 ug/mL (5.0-10.0) H 06/12/17 11:36 Valproic Acid 49.9 ug/mL (50.0-100.0) L 06/11/17 15:04 Ur L.pneumophila Ag Negative (NEGATIVE) 06/12/17 08:06 Mycoplasma pneumon IgM Negative (NEGATIVE) 06/12/17 08:11 Grp A Beta Strep Ag Cancelled 06/12/17 08:11 - Hospital Course Hospital Course: On admission: This 82 y/o F with PMhx of TBI about 8 years ago, seizures, and rheumatoid arthritis - presents from alf due to Fever and leakage from gastric tube for the past day. Patient is nonverbal, nonresponsive, and bed bound at baseline. Patient opens and follows movement, however she does not respond to her name or commands. After an episode of pneumonia approximately 1 year ago, she has been bed bound. Patient had an EG tube placed June 2015 and exchanged in May 2016 due to tube malfunction per prior documentation. The PEG dislodged in October 2016 and was replaced by ED staff. On prior admission March 2017, patient's EG Tube grew ESBL+ bacteria. Patient received a PICC line for terminal worker antibiotic administration to be continued at alf at that time. Patient is DNR/DNI. ROS cannot be obtained secondary to pt's inabilty to answer questions. During hospitalization Patient was evaluated by GI physician Dr. Adame for G tube dysfunction. G tube was found to be functioning well and tube feeds were restarted. Urine culture showed patient to have UTI caused by E. coli. [place] was changed and antibiotics (Zosyn 3.375 IVPB Q6H and Vancomycin 1Gm IVPB Q12H) were started. Dr. Iqbal was consulted for possible aspiration pneumonia, catheter associated UTI/prior hx of ESBL+UTI on last admission. Lactic acid was checked and found to be normal. Patient did not meet sepsis criteria. Pt had CT of head, chest, abdomen and pelvis. CT of chest abdomen and pelvis highly suspicious for bilateral pneumonia, greatest in the left lower lobe, which is diffusely, densely consolidated. Findings also suspicious for mild stercoral proctitis and very small left pleural effusion. No acute findings on head CT. LE duplex was done for LE edema and showed no evidence of venous thrombosis b/l or valve dysfunction. Patient 00:39 on 06/13/17. Discharge Exam - Head Exam Additional comments: Please refer to pronouncement of note Discharge Plan - Follow Up Plan Condition: Disposition: WITH WITHOUT AUTOPSY <Marilu Yo V - Last Filed: 06/14/17 13:44> Provider - Provider Date of Admission: 06/11/17 15:51 Attending physician: Damian Castaneda MD Hospital Course - Lab Results Lab Results: Micro Results 06/11/17 23:12 Peg Site Gram Stain - Final 06/11/17 23:12 Peg Site Wound Culture - Preliminary Proteus Mirabilis Yeast Species 06/11/17 16:00 Blood Blood Culture - Preliminary NO GROWTH AFTER 48 HOURS Most Recent Lab Values WBC 5.0 K/uL (4.8-10.8) 06/12/17 08:11 RBC 2.68 Mil/uL (3.80-5.20) L 06/12/17 08:11 Hgb 8.7 g/dL (11.0-16.0) L 06/12/17 08:11 Hct 26.4 % (34.0-47.0) L 06/12/17 08:11 MCV 98.3 fL (81.0-99.0) 06/12/17 08:11 MCH 32.5 pg (27.0-31.0) H 06/12/17 08:11 MCHC 33.1 g/dL (33.0-37.0) 06/12/17 08:11 RDW 14.4 % (11.5-14.5) 06/12/17 08:11 Plt Count 244 K/uL (130-400) 06/12/17 08:11 MPV 8.4 fL (7.2-11.7) 06/12/17 08:11 Neut % (Auto) 52.0 % (50.0-75.0) 06/12/17 08:11 Lymph % (Auto) 34.4 % (20.0-40.0) 06/12/17 08:11 Mclean % (Auto) 10.8 % (0.0-10.0) H 06/12/17 08:11 Eos % (Auto) 2.5 % (0.0-4.0) 06/12/17 08:11 Baso % (Auto) 0.3 % (0.0-2.0) 06/12/17 08:11 Neut # 2.6 K/uL (1.8-7.0) 06/12/17 08:11 Lymph # 1.7 K/uL (1.0-4.3) 06/12/17 08:11 Mclean # 0.5 K/uL (0.0-0.8) 06/12/17 08:11 Eos # 0.1 K/uL (0.0-0.7) 06/12/17 08:11 Baso # 0.0 K/uL (0.0-0.2) 06/12/17 08:11 PT 14.4 SECONDS (9.7-12.2) H 06/11/17 15:04 INR 1.3 06/11/17 15:04 APTT 50 SECONDS (21-34) H D 06/12/17 08:11 pO2 45 mm/Hg (30-55) 06/11/17 17:35 VBG pH 7.40 (7.32-7.43) 06/11/17 17:35 VBG pCO2 53 mmHg (40-60) 06/11/17 17:35 VBG HCO3 29.5 mmol/L 06/11/17 17:35 VBG Total CO2 34.4 mmol/L (22-28) H 06/11/17 17:35 VBG O2 Sat (Calc) 83.0 % (40-65) H 06/11/17 17:35 VBG Base Excess 6.5 mmol/L (0.0-2.0) H 06/11/17 17:35 VBG Potassium 3.8 mmol/L (3.6-5.2) 06/11/17 17:35 Sodium 141.0 mmol/l (132-148) 06/11/17 17:35 Chloride 106.0 mmol/L (98-107) 06/11/17 17:35 Glucose 84 mg/dl (65-105) 06/11/17 17:35 Lactate 0.8 mmol/L (0.7-2.1) 06/11/17 17:35 FiO2 21.0 % 06/11/17 17:35 Sodium 141 mmol/L (132-148) 06/12/17 08:11 Potassium 3.8 mmol/L (3.6-5.2) 06/12/17 08:11 Chloride 103 mmol/L (98-107) 06/12/17 08:11 Carbon Dioxide 29 mmol/L (22-30) 06/12/17 08:11 Anion Gap 13 (10-20) 06/12/17 08:11 BUN 17 mg/dL (7-17) 06/12/17 08:11 Creatinine 0.5 MG/DL (0.7-1.2) L 06/12/17 08:11 Est GFR ( Amer) > 60 06/12/17 08:11 Est GFR (Non-Af Amer) > 60 06/12/17 08:11 POC Glucose (mg/dL) 97 mg/dL (65-110) 06/12/17 21:05 Random Glucose 91 mg/dL (65-105) 06/12/17 08:11 Calcium 9.1 mg/dl (8.6-10.4) 06/12/17 08:11 Phosphorus 4.2 mg/dL (2.5-4.5) 06/12/17 08:11 Magnesium 2.1 mg/dL (1.6-2.3) 06/12/17 08:11 Total Bilirubin 0.2 mg/dL (0.2-1.3) 06/12/17 08:11 AST 20 U/L (14-36) 06/12/17 08:11 ALT 15 U/L (9-52) 06/12/17 08:11 Alkaline Phosphatase 63 U/L (38-126) 06/12/17 08:11 Total Protein 6.8 g/dL (6.3-8.3) 06/12/17 08:11 Albumin 2.4 g/dL (3.5-5.0) L 06/12/17 08:11 Globulin 4.4 gm/dL (2.2-3.9) H 06/12/17 08:11 Albumin/Globulin Ratio 0.5 (1.0-2.1) L 06/12/17 08:11 Procalcitonin 0.08 NG/ML (0.19-0.49) L 06/12/17 08:11 Venous Blood Potassium 3.8 mmol/L (3.6-5.2) 06/11/17 17:35 Urine Color Yellow (YELLOW) 06/11/17 15:04 Urine Clarity Hazy (Clear) 06/11/17 15:04 Urine pH 8.0 (5.0-8.0) 06/11/17 15:04 Ur Specific [place] 1.019 (1.003-1.030) 06/11/17 15:04 Urine Protein 2+ mg/dL (NEGATIVE) H 06/11/17 15:04 Urine Glucose (UA) Normal mg/dL (Normal) 06/11/17 15:04 Urine Ketones Negative mg/dL (NEGATIVE) 06/11/17 15:04 Urine Blood 1+ (NEGATIVE) H 06/11/17 15:04 Urine Nitrate Negative (NEGATIVE) 06/11/17 15:04 Urine Bilirubin Negative (NEGATIVE) 06/11/17 15:04 Urine Urobilinogen Normal mg/dL (0.2-1.0) 06/11/17 15:04 Ur Leukocyte Esterase 3+ Derrick/uL (Negative) H 06/11/17 15:04 Urine WBC (Auto) 99 /hpf (0-5) H 06/11/17 15:04 Urine RBC (Auto) 29 /hpf (0-3) H 06/11/17 15:04 Ur Squamous Epith Cells 1 /hpf (0-5) 06/11/17 15:04 Calcium Oxalate Crystal Occ /hpf (<OCC) H 06/11/17 15:04 Urine Bacteria Mod (<OCC) H 06/11/17 15:04 Vancomycin Trough 16.8 ug/mL (5.0-10.0) H 06/12/17 11:36 Valproic Acid 49.9 ug/mL (50.0-100.0) L 06/11/17 15:04 Ur L.pneumophila Ag Negative (NEGATIVE) 06/12/17 08:06 M.pneumoniae IgG Titer 1.63 (<=0.90) H 06/12/17 08:11 Mycoplasma pneumon IgM Negative (NEGATIVE) 06/12/17 08:11 Grp A Beta Strep Ag Cancelled 06/12/17 08:11 Attending/Attestation - Attestation Notes (Text): This is late computer entry for 06/13/17. Patient admitted after found with fever at the alf and brought into the emergency room. patient did not meet code sepsis criteria. Patient treated with an IV antibiotics for Aspiration Pneumonia and suspected urinary tract infection given prior history of ESBL+ UTI. Blood and urine collected. Patient underwent imaging supporting bilateral pneumonia. Infectious Disease on consult. GI evaluated patient's G- tube given suspected leak, was evaluated and cleared for use. At time of expiration, blood cultures result not available, upon later review patient has bacteremia and catheter associated urinary infection. Patient was found pulseless by nursing staff on 06/13/17 was evaluated and pronounced on at 12:39 AM. Patient is a DNR/DNI. EDRS completed and certified. Family informed. Primary care doctor: Dr. Weiss informed. This is a brief summary of patient's hospitalization. Please see EMR record for further details. Discharge Diagnoses: 1) Cardiopulmonary Arrest 2) Aspiration Pneumonia 3) Bacteremia 4) Catheter Associated Urinary Tract Infection 5) Pleural Effusion 6) Gastrostomy tube dysfunction 7) History of seizures and Traumatic Brain Injury 8) Dysphagia following cerebrovascular disease 9) Lower Extremity Edema
[2017-06-14] MEDS ORDERED: Pneumococcal 23-Valent Vaccine IM ONE (10:00)
[2017-06-16 22:18] LABS: STREP PNEMONIAE 12 AB IgG <0.3; STREP PNEMONIAE 14 AB IgG 0.4; STREP PNEMONIAE 23 AB IgG <0.3; STREP PNEMONIAE 26 AB IgG 0.8; STREP PNEMONIAE 3 AB IgG 1.3; STREP PNEMONIAE 4 AB IgG 0.8; STREP PNEMONIAE 5 AB IgG 0.6; STREP PNEMONIAE 51 AB IgG 0.6; STREP PNEMONIAE 56 AB IgG <0.3; STREP PNEMONIAE 68 AB IgG 0.8; STREP PNEMONIAE 8 AB IgG <0.3; STREP PNEMONIAE 9 AB IgG 6.4
== END 2017-06-13 02:00 | DRG 393 ==
LOC: C.ER 13:14 → C.9E 15:51 → C.5T 17:49
PROVIDERS: ADMIT Internal Medicine; ATTEND Internal Medicine
DX: K94.23 Gastrostomy malfunction (principal); J69.0 Pneumonitis due to inhalation of food and vomit; I46.9 Cardiac arrest, cause unspecified; J90 Pleural effusion, not elsewhere classified; R78.81 Bacteremia; T83.518A Infection and inflammatory reaction due to other urinary catheter, initial encounter; N39.0 Urinary tract infection, site not specified; Z66 Do not resuscitate; F03.90 Unspecified dementia, unspecified severity, without behavioral disturbance, psychotic disturbance, mood disturbance, and anxiety; R13.10 Dysphagia, unspecified; Y83.3 Surgical operation with formation of external stoma as the cause of abnormal reaction of the patient, or of later complication, without mention of misadventure at the time of the procedure; R60.0 Localized edema; B96.20 Unspecified Escherichia coli [E. coli] as the cause of diseases classified elsewhere; Y84.6 Urinary catheterization as the cause of abnormal reaction of the patient, or of later complication, without mention of misadventure at the time of the procedure; I67.9 Cerebrovascular disease, unspecified; G40.909 Epilepsy, unspecified, not intractable, without status epilepticus; Z74.01 Bed confinement status; Z87.820 Personal history of traumatic brain injury; Z87.891 Personal history of nicotine dependence